=== PATIENT | male | born 1965 | race Caucasian/White ===

== ENCOUNTER 2016-06-30 11:11 | Inpatient (IN) | payer OTHER ==
[2016-06-30] MEDS ORDERED: NITROGLYCERIN OINT 1 INCH/GM PACKET TOPICAL STA (11:45)
[2016-06-30] MEDS ORDERED: ASPIRIN 81 MG CHEW PO STA (11:45)
--- NOTE | 2016-06-30 11:48 | ED ---
General Adult HPI - General Chief complaint: Chest Pain Stated complaint: CHEST PAIN Time Seen by Provider: 06/30/16 11:16 Source: patient, family, RN notes reviewed Mode of arrival: wheelchair Limitations: no limitations - History of Present Illness Initial comments: Patient is a pleasant 51-year-old male presenting to the emergency Department with chest discomfort. Symptoms have been intermittent over the past 3-4 days. Symptoms are exertional. Discomfort feels like indigestion with radiation up to the neck. Patient does have some associated mild dyspnea. Patient did have one episode of nausea and vomiting and sweating a couple of days ago. Patient recently had a trip to [place]. Symptoms started prior to coming home. Patient is currently symptom-free at this time. No history of similar symptoms previously. - Related Data Home Medications Medication Instructions Recorded Confirmed Hydrochlorothiazide [Hydrodiuril] 25 mg PO DAILY 06/30/16 06/30/16 Losartan [Cozaar] 12.5 mg PO DAILY 06/30/16 06/30/16 Allergies Allergy/AdvReac Type Severity Reaction Status Date / Time Antihistamines - Alkylamine AdvReac Unknown Verified 06/30/16 12:02 ibuprofen [From Motrin] AdvReac Nausea Verified 06/30/16 12:03 Review of Systems ROS Statement: Those systems with pertinent positive or pertinent negative responses have been documented in the HPI. ROS Other: All systems not noted in ROS Statement are negative. Constitutional: Denies: fever Eyes: Denies: eye pain ENT: Denies: ear pain Respiratory: Reports: dyspnea Cardiovascular: Reports: chest pain Endocrine: Reports: fatigue Gastrointestinal: Denies: abdominal pain Genitourinary: Denies: dysuria Musculoskeletal: Denies: back pain Skin: Denies: rash Past Medical History Past Medical History: Hypertension History of Any Multi-Drug Resistant Organisms: None Reported Additional Past Surgical History / Comment(s): THYROID, FACIAL, PILONODIAL CYST , SHOULDER Past Psychological History: No Psychological Hx Reported Smoking Status: Current every day smoker Past Alcohol Use History: Occasional Past Drug Use History: None Reported General Exam Limitations: no limitations General appearance: alert, in no apparent distress Head exam: Present: atraumatic Eye exam: Present: normal appearance, PERRL ENT exam: Present: normal oropharynx Neck exam: Present: normal inspection Respiratory exam: Present: normal lung sounds bilaterally. Absent: chest wall tenderness Cardiovascular Exam: Present: regular rate, normal rhythm Expanded Peripheral pulses: 2+: Radial (R), Radial (L), Dorsalis Pedis (R), Dorsalis Pedis (L) GI/Abdominal exam: Present: soft. Absent: tenderness Extremities exam: Present: normal inspection. Absent: pedal edema, calf tenderness Neurological exam: Present: alert Psychiatric exam: Present: normal affect, normal mood Skin exam: Absent: rash Course Vital Signs 06/30/16 06/30/16 06/30/16 11:15 11:54 12:53 Temperature 97.4 F L Pulse Rate 77 73 70 Respiratory 18 18 20 Rate Blood Pressure 140/87 150/98 132/63 O2 Sat by Pulse 97 96 97 Oximetry EKG Findings - EKG Comments: EKG Findings:: Normal sinus rhythm at 74. Normal intervals. Normal axis. LVH criteria. No acute ST change. Medical Decision Making - Medical Decision Making Patient reevaluated and resting comfortably in bed. Patient and family updated on results and plan. Case discussed in detail with Dr. Shetty, who will admit for Dr. Parks. IV heparin started. Cardiology will be consult. Admission orders placed. - Lab Data Result diagrams: 06/30/16 11:30 06/30/16 11:30 Lab Results 06/30/16 06/30/16 06/30/16 Range/Units 11:30 11:30 11:30 WBC 5.9 (3.8-10.6) k/uL RBC 6.28 H (4.30-5.90) m/uL Hgb 18.7 H (13.0-17.5) gm/dL Hct 58.4 H (39.0-53.0) % MCV 92.9 (80.0-100.0) fL MCH 29.8 (25.0-35.0) pg MCHC 32.1 (31.0-37.0) g/dL RDW 13.3 (11.5-15.5) % Plt Count 210 (150-450) k/uL Neutrophils % 68 % Lymphocytes % 22 % Monocytes % 5 % Eosinophils % 3 % Basophils % 1 % Neutrophils # 4.0 (1.3-7.7) k/uL Lymphocytes # 1.3 (1.0-4.8) k/uL Monocytes # 0.3 (0-1.0) k/uL Eosinophils # 0.2 (0-0.7) k/uL Basophils # 0.1 (0-0.2) k/uL PT (9.0-12.0) sec INR (<1.1) APTT (22.0-30.0) sec D-Dimer (<0.60) mg/L FEU Sodium 138 (137-145) mmol/L Potassium 4.9 (3.5-5.1) mmol/L Chloride 102 (98-107) mmol/L Carbon Dioxide 24 (22-30) mmol/L Anion Gap 12 mmol/L BUN 20 (9-20) mg/dL Creatinine 1.04 (0.66-1.25) mg/dL Est GFR (MDRD) Af Amer >60 (>60 ml/min/1.73 sqM) Est GFR (MDRD) Non-Af >60 (>60 ml/min/1.73 sqM) Glucose 94 (74-99) mg/dL Calcium 9.5 (8.4-10.2) mg/dL Magnesium 2.0 (1.6-2.3) mg/dL Total Bilirubin 1.7 H (0.2-1.3) mg/dL AST 38 (17-59) U/L ALT 24 (21-72) U/L Alkaline Phosphatase 56 (38-126) U/L Total Creatine Kinase 117 (55-170) U/L CK-MB (CK-2) 4.1 H* (0.0-2.4) ng/mL CK-MB (CK-2) Rel Index 3.5 Troponin I 0.365 H* (0.000-0.034) ng/mL NT-Pro-B Natriuret Pep pg/mL Total Protein 7.6 (6.3-8.2) g/dL Albumin 4.4 (3.5-5.0) g/dL 06/30/16 06/30/16 Range/Units 11:30 11:30 WBC (3.8-10.6) k/uL RBC (4.30-5.90) m/uL Hgb (13.0-17.5) gm/dL Hct (39.0-53.0) % MCV (80.0-100.0) fL MCH (25.0-35.0) pg MCHC (31.0-37.0) g/dL RDW (11.5-15.5) % Plt Count (150-450) k/uL Neutrophils % % Lymphocytes % % Monocytes % % Eosinophils % % Basophils % % Neutrophils # (1.3-7.7) k/uL Lymphocytes # (1.0-4.8) k/uL Monocytes # (0-1.0) k/uL Eosinophils # (0-0.7) k/uL Basophils # (0-0.2) k/uL PT 11.9 (9.0-12.0) sec INR 1.2 (<1.1) APTT 28.2 (22.0-30.0) sec D-Dimer <0.17 (<0.60) mg/L FEU Sodium (137-145) mmol/L Potassium (3.5-5.1) mmol/L Chloride (98-107) mmol/L Carbon Dioxide (22-30) mmol/L Anion Gap mmol/L BUN (9-20) mg/dL Creatinine (0.66-1.25) mg/dL Est GFR (MDRD) Af Amer (>60 ml/min/1.73 sqM) Est GFR (MDRD) Non-Af (>60 ml/min/1.73 sqM) Glucose (74-99) mg/dL Calcium (8.4-10.2) mg/dL Magnesium (1.6-2.3) mg/dL Total Bilirubin (0.2-1.3) mg/dL AST (17-59) U/L ALT (21-72) U/L Alkaline Phosphatase (38-126) U/L Total Creatine Kinase (55-170) U/L CK-MB (CK-2) (0.0-2.4) ng/mL CK-MB (CK-2) Rel Index Troponin I (0.000-0.034) ng/mL NT-Pro-B Natriuret Pep 220 pg/mL Total Protein (6.3-8.2) g/dL Albumin (3.5-5.0) g/dL - Radiology Data Radiology results: image reviewed (Chest x-ray shows no acute process.) Critical Care Time Critical Care Time: Yes Total Critical Care Time: 34 Disposition Clinical Impression: NSTEMI (non-ST elevated myocardial infarction) Disposition: ADMITTED IP TO THIS HOSP Condition: Serious
[2016-06-30 12:02] LABS: Basophils # (A) 0.1 k/uL (0-0.2); Basophils % (A) 1 %; CH 30.3; CHCM 32.8; Eosinophils # (A) 0.2 k/uL (0-0.7); Eosinophils % (A) 3 %; HCT 58.4 % (39.0-53.0); HDW 2.61; HGB 18.7 gm/dL (13.0-17.5); Luc # (Auto) 0.09; Luc % (Auto) 1; Lymphocytes # (A) 1.3 k/uL (1.0-4.8); Lymphocytes % (A) 22 %; MCH 29.8 pg (25.0-35.0); MCHC 32.1 g/dL (31.0-37.0); MCV 92.9 fL (80.0-100.0); Mean Platelet Volume 7.4; Monocytes # (A) 0.3 k/uL (0-1.0); Monocytes % (A) 5 %; Neutrophils % (A) 68 %; RBC 6.28 m/uL (4.30-5.90); RDW 13.3 % (11.5-15.5); WBC 5.9 k/uL (3.8-10.6); WBC (Perox) 5.71
[2016-06-30 12:16] LABS: Anion Gap 12 mmol/L; Calcium 9.5 mg/dL (8.4-10.2); Carbon Dioxide 24 mmol/L (22-30); Chloride 102 mmol/L (98-107); Glucose 94 mg/dL (74-99); Non-African American GFR(MDRD) >60 (>60 ml/min/1.73 sqM); Sodium 138 mmol/L (137-145); Total Bilirubin 1.7 mg/dL (0.2-1.3); Total Protein 7.6 g/dL (6.3-8.2)
[2016-06-30 12:25] LABS: INR 1.2 (<1.1); Partial Thromboplastin Time 28.2 sec (22.0-30.0); Prothrombin Time 11.9 sec (9.0-12.0)
[2016-06-30 12:33] LABS: ALT 24 U/L (21-72); AST 38 U/L (17-59); Alkaline Phosphatase 56 U/L (38-126); Blood Urea Nitrogen 20 mg/dL (9-20); Potassium 4.9 mmol/L (3.5-5.1)
--- NOTE | 2016-06-30 12:41 | XR ---
EXAMINATION TYPE: XR chest 2V DATE OF EXAM: 06/30/2016 12:15 PM COMPARISON: NONE INDICATION: Chest pain TECHNIQUE: Single frontal view of the chest is obtained. FINDINGS: The heart size is normal. The pulmonary vasculature is normal. The lungs are clear. IMPRESSION: 1. No acute pulmonary process.
[2016-06-30 12:52] LABS: Creatine Kinase MB 4.1 ng/mL (0.0-2.4); Troponin I 0.365 ng/mL (0.000-0.034)
[2016-06-30] MEDS ORDERED: HEPARIN SODIUM,PORCINE 5,000 UNIT/ML 1 ML VIAL IV PRN (12:53)
[2016-06-30] MEDS ORDERED: HEPARIN SODIUM,PORCINE 5,000 UNIT/ML 1 ML VIAL IV ONE (12:53)
[2016-06-30] MEDS ORDERED: HEPARIN SODIUM,PORCINE/D5W PMX 25,000 UNIT in DEXTROSE/WATER 1 500ML.BAG IV SCH (13:00)
[2016-06-30] MEDS ORDERED: SODIUM CHLORIDE 0.9% 1,000 ML IV STA (13:23)
[2016-06-30] MEDS ORDERED: NITROGLYCERIN SL TABS 0.4 MG TAB SUBLINGUAL PRN (13:31)
[2016-06-30] MEDS: NITROGLYCERIN OINT 1 INCH/GM PACKET TOPICAL SCH (18:17)
[2016-06-30 19:47] LABS: Creatine Kinase MB 3.9 ng/mL (0.0-2.4); Troponin I 0.633 ng/mL (0.000-0.034)
[2016-07-01] MEDS: NITROGLYCERIN OINT 1 INCH/GM PACKET TOPICAL SCH ×4 (00:15→17:12)
[2016-07-01 00:46] LABS: Creatine Kinase MB 2.4 ng/mL (0.0-2.4)
[2016-07-01 01:01] LABS: Troponin I 0.536 ng/mL (0.000-0.034)
[2016-07-01 03:26] LABS: Basophils % (A) 1 %; CH 30.3; Eosinophils # (A) 0.4 k/uL (0-0.7); Eosinophils % (A) 4 %; HCT 56.8 % (39.0-53.0); HDW 2.58; HGB 17.8 gm/dL (13.0-17.5); Luc # (Auto) 0.16; Luc % (Auto) 2; Lymphocytes # (A) 2.5 k/uL (1.0-4.8); Lymphocytes % (A) 28 %; MCH 29.7 pg (25.0-35.0); MCHC 31.3 g/dL (31.0-37.0); Mean Platelet Volume 7.1; Monocytes # (A) 0.4 k/uL (0-1.0); Monocytes % (A) 5 %; Neutrophils # (A) 5.4 k/uL (1.3-7.7); Neutrophils % (A) 61 %; RBC 5.98 m/uL (4.30-5.90); RDW 13.3 % (11.5-15.5); WBC 8.9 k/uL (3.8-10.6); WBC (Perox) 9.04
[2016-07-01 03:37] LABS: Cholesterol 139 mg/dL (<200); HDL Cholesterol 52 mg/dL (40-60); Triglycerides 109 mg/dL (<150)
[2016-07-01] MEDS ORDERED: ATORVASTATIN 80 MG TAB PO STA ×2 (07:48→09:13)
--- NOTE | 2016-07-01 08:01 | P.CRDCN ---
History of Present Illness Consult date: 07/01/16 Requesting physician: Rox Gutierrez Consult reason: chest pain Chief complaint: Chest pain History of present illness: This is a 51-year-old gentleman with history of hypertension, nicotine dependence in the form of chewing tobacco, he follows with Dr. 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 He presents to the hospital with symptoms of midsternal chest pressure and heaviness with radiation to the jaw. Patient has just returned recently from a vacation in [place], he states that while he was there he was having episodes of similar discomfort which he initially thought to be heartburn. He states that he would drink Pepsi, belching the symptoms would subside, he then needed to go to antacids to get relief of symptoms. The patient states he was limiting his activity because when he would do anything of minimal exertion symptoms would return. He presents to the hospital on this occasion with similar symptoms. His initial EKG on presentation here shows a normal sinus rhythm with nonspecific ST-T wave changes in the inferior leads, subsequent EKG performed at 3:00 in the morning shows T-wave inversion in the inferior lateral leads with minimal ST-T wave changes in the anterior leads. Patient started complaining again of chest pressure and heaviness this morning, repeat EKG shows normal sinus rhythm with anterior ST elevation and inferior lateral T- wave inversion, patient was given sublingual nitroglycerin with relief of symptoms. At the time of my examination this morning he complains of a headache. Troponins 0.3, 0.6, 0.5. BNP level CCXX, potassium 4.9, BUN 20, creatinine 1.0. Magnesium level is 2.0. D-dimer negative at 0.17. Hemoglobin 17.8 platelet count 200. Cholesterol 139, LDL 65, HDL 52, and triglycerides 109. Blood pressure on arrival here 140/87 with a heart rate in the 70s. The pressure this morning 120/60 with a heart rate in the 70s. Past Medical History Past Medical History: Hypertension Additional Past Medical History / Comment(s): kidney stones,"i have thick blood ,sometimes that have to take blood from me at least once a year" History of Any Multi-Drug Resistant Organisms: None Reported Additional Past Surgical History / Comment(s): paraTHYROID, FACIAL reconstruction nose, eye socket d/t accident, PILONODIAL CYSTs x 5, lt SHOULDER reconstruction Past Anesthesia/Blood Transfusion Reactions: No Reported Reaction Past Psychological History: No Psychological Hx Reported Additional Psychological History / Comment(s): pt lives at home with is and 5 kids in a 3 level home(walk out basement. 1 dog, 2 outdorr cats. no mitlitay service in background. 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 Smoking Status: Never smoker Past Alcohol Use History: Occasional Additional Past Alcohol Use History / Comment(s): chews tobacco Past Drug Use History: None Reported - Past Family History Father History Unknown: Yes Medications and Allergies Home Medications Medication Instructions Recorded Confirmed Type Hydrochlorothiazide [Hydrodiuril] 25 mg PO DAILY 06/30/16 06/30/16 History Losartan [Cozaar] 12.5 mg PO DAILY 06/30/16 06/30/16 History Allergies Allergy/AdvReac Type Severity Reaction Status Date / Time Antihistamines - Alkylamine AdvReac Unknown Verified 06/30/16 12:02 ibuprofen [From Motrin] AdvReac Nausea Verified 06/30/16 12:03 Physical Exam Vitals: Vital Signs Temp Pulse Pulse Resp BP BP Pulse Ox 07/01/16 04:00 96.8 F L 70 18 121/63 95 07/01/16 00:00 97.5 F L 61 18 128/55 98 06/30/16 20:00 98.2 F 70 18 130/65 97 06/30/16 17:02 96.8 F L 102 H 18 127/73 94 L 06/30/16 15:54 73 20 126/64 98 06/30/16 15:00 69 20 135/68 96 06/30/16 14:00 65 20 137/56 99 Intake and Output 06/30/16 07/01/16 07/01/16 22:59 06:59 14:59 Intake Total 153.667 196.24 Output Total 1000 Balance 153.667 -803.76 Intake: Intake, IV Titration 153.667 196.24 Amount Heparin Sodium,Porcine/ 153.667 196.24 D5w Pmx 25,000 unit In Dextrose/Water 1 500ml. bag @ 8.819 UNITS/KG/HR 20 mls/hr IV .Q24H ARIK Rx #:[id number] Oral 0 Output: Urine 1000 Other: # Voids 1 1 Weight 112 kg PHYSICAL EXAMINATION: HEENT: Head is atraumatic, normocephalic. Pupils equal, round. Neck is supple. There is no elevated jugular venous pressure. HEART EXAMINATION: Heart S1, S2 normal. No murmur or gallop heard. CHEST EXAMINATION: Lungs are clear to auscultation and precussion. No chest wall tenderness is noted on palpation or with deep breathing. ABDOMEN: Soft, nontender. Bowel sounds are heard. No organomegaly noted. EXTREMITIES: 2+ peripheral pulses with no evidence of peripheral edema and no calf tenderness noted. NEUROLOGIC patient is awake, alert and oriented -3. . Results 07/01/16 03:02 06/30/16 11:30 Cardiac Enzymes 06/30/16 06/30/16 Range/Units 18:56 23:47 CK-MB (CK-2) 3.9 H* 2.4 (0.0-2.4) ng/mL Troponin I 0.633 H* 0.536 H* (0.000-0.034) ng/mL Coagulation 06/30/16 07/01/16 Range/Units 20:10 03:02 APTT 27.3 32.1 H (22.0-30.0) sec Lipids 07/01/16 Range/Units 03:02 Triglycerides 109 (<150) mg/dL Cholesterol 139 (<200) mg/dL HDL Cholesterol 52 (40-60) mg/dL CBC 07/01/16 Range/Units 03:02 WBC 8.9 (3.8-10.6) k/uL RBC 5.98 H (4.30-5.90) m/uL Hgb 17.8 H (13.0-17.5) gm/dL Hct 56.8 H (39.0-53.0) % Plt Count 200 (150-450) k/uL Current Medications Generic Name Dose Route Start Last Admin Trade Name Freq PRN Reason Stop Dose Admin Aspirin 325 mg 07/01/16 09:00 07/01/16 07:52 Aspirin PO 325 mg DAILY ARIK Administration Heparin Sodium (Porcine) 0 unit 06/30/16 12:53 Heparin IV PER PROTOCOL PRN Low PTT Protocol Heparin Sodium/Dextrose 25,000 500 mls @ 20 mls/hr 06/30/16 13:00 07/01/16 04 :21 unit/ IV Solution IV 14.8 units/kg/hr .Q24H ARIK 33.56 mls/hr Protocol Titration 8.819 UNITS/KG/HR Sodium Chloride 1,000 mls @ 20 mls/hr 06/30/16 13:23 06/30/16 13:20 Saline 0.9% IV 07/01/16 13:22 20 mls/hr .Q24H STA Administration Nitroglycerin 1 inch 06/30/16 18:00 07/01/16 06:55 Nitro-Bid Oint TOPICAL 1 inch Q6HR ARIK Administration Nitroglycerin 0.4 mg 06/30/16 13:31 07/01/16 07:28 Nitrostat SUBLINGUAL 0.4 mg Q5M PRN Administration Chest Pain Sodium Chloride 10 ml 06/30/16 21:00 07/01/16 06:55 Saline Flush IV 10 ml BID ARIK Administration Intake and Output 06/30/16 07/01/16 07/01/16 22:59 06:59 14:59 Intake Total 153.667 196.24 Output Total 1000 Balance 153.667 -803.76 Intake: Intake, IV Titration 153.667 196.24 Amount Heparin Sodium,Porcine/ 153.667 196.24 D5w Pmx 25,000 unit In Dextrose/Water 1 500ml. bag @ 8.819 UNITS/KG/HR 20 mls/hr IV .Q24H ARIK Rx #:[id number] Oral 0 Output: Urine 1000 Other: # Voids 1 1 Weight 112 kg 07/01/16 03:02 EKG Interpretations (text) EKG shows normal sinus rhythm with anterior ST-T wave changes in inferior lateral T-wave inversion. Assessment and Plan Plan: Assessment and plan #1 non-ST elevation myocardial infarction #2 hypertension #3 nicotine dependence in the form of chewing tobacco Plan We will obtain a stat echocardiogram with Doppler study. Give the patient an aspirin along with Lipitor 80 now. Continue IV heparin. Patient has been advised that he may need to undergo cardiac catheterization for more definitive diagnosis. The risks and the benefits were explained to the patient in detail and he is willing to proceed. Further recommendations will follow. DNP note has been reviewed, I agree with a documented findings and plan of care. Patient was seen and examined.
[2016-07-01] MEDS ORDERED: ASPIRIN 325 MG TAB PO SCH (09:00)
[2016-07-01] MEDS ORDERED: SODIUM CHLORIDE 0.9% 1,000 ML in EMPTY BAG 1 BAG IV ONE (09:13)
[2016-07-01] MEDS ORDERED: ASPIRIN 325 MG TAB PO STA (09:13)
[2016-07-01] MEDS ORDERED: ALPRAZolam 0.25 MG TAB PO PRN (09:13)
[2016-07-01] MEDS ORDERED: ALPRAZolam 0.5 MG TAB PO PRN (09:13)
[2016-07-01] MEDS ORDERED: NITROGLYCERIN SL TABS 0.4 MG TAB SUBLINGUAL PRN (09:13)
[2016-07-01] MEDS ORDERED: IV FLUID CONTINUATION 1,000 ML IV ONE (10:12)
[2016-07-01] MEDS ORDERED: LIDOCAINE 2% INJ 20 MG/ML (20 ML MDV) ONE (10:21)
[2016-07-01] MEDS ORDERED: HEPARIN SODIUM 1,000 UNIT/ML VIAL ONE (10:23)
[2016-07-01] MEDS ORDERED: VERAPAMIL 2.5 MG/ML 2 ML AMP ONE (10:23)
[2016-07-01] MEDS ORDERED: MIDAZOLAM 2 MG/2 ML VIAL ONE (10:23)
[2016-07-01] MEDS ORDERED: diphenhydrAMINE 50 MG/ML 1 ML VIAL ONE (10:23)
[2016-07-01] MEDS ORDERED: MIDAZOLAM 2 MG/2 ML VIAL IV ONE (10:52)
[2016-07-01] MEDS ORDERED: diphenhydrAMINE 50 MG/ML 1 ML VIAL IVP ONE (10:53)
[2016-07-01] MEDS ORDERED: LIDOCAINE 2% INJ 20 MG/ML SQ ONE (10:56)
[2016-07-01] MEDS: VERAPAMIL SYRINGE (5 MG/10 ML) IV ONE ×2 (10:57→11:55)
[2016-07-01] MEDS ORDERED: HEPARIN SODIUM 1,000 UNIT/ML VIAL IV ONE (10:58)
[2016-07-01] MEDS ORDERED: BIVALIRUDIN BOLUS 250 MG/50 ML IV ONE (11:15)
[2016-07-01] MEDS ORDERED: BIVALIRUDIN 250 MG in SODIUM CHLORIDE 0.9% 50 ML IV ONE (11:16)
--- NOTE | 2016-07-01 11:19 | ECHOF ---
Referral Reason:nstemi MEASUREMENTS -------- HEIGHT: 182.9 cm WEIGHT: 111.6 kg BP: 124/75 IVSd: 1.4 cm (0.6 - 1.1) LVIDd: 3.5 cm (3.9 - 5.3) LVPWd: 1.6 cm (0.6 - 1.1) IVSs: 1.8 cm LVIDs: 1.9 cm LVPWs: 2.0 cm Ao Diam: 3.1 cm (2.0 - 3.7) AV Cusp: 2.3 cm (1.5 - 2.6) LA Diam: 3.1 cm (2.7 - 3.8) MV EXCURSION: 15.618 mm (> 18.000) MV EF SLOPE: 79 mm/s (70 - 150) EPSS: 0.4 cm MV E Aditya: 0.47 m/s MV DecT: 275 ms MV A Aditya: 0.73 m/s MV E/A Ratio: 0.64 RAP: 5.00 mmHg FINDINGS -------- Sinus rhythm. This was a technically difficult study with suboptimal views. There is moderate concentric left ventricular hypertrophy. Overall left ventricular systolic function is normal with, an EF between 55 - 60 %. The right ventricle is normal in size and function. The left atrium is normal in size. The right atrium is normal in size. 1.5mg of Definity was utilized for enhancement of images The aortic valve is trileaflet, and appears structurally normal. No aortic stenosis or regurgitation. There is trace mitral regurgitation. Trace tricuspid regurgitation present. The right ventricular systolic pressure, as measured by Doppler, is {RVSP}. Pulmonic valve appears structurally normal. The aortic root size is normal. The pericardium is normal. CONCLUSIONS -------- 1. Sinus rhythm. 2. There is trace mitral regurgitation. 3. Trace tricuspid regurgitation present. 4. The right ventricular systolic pressure, as measured by Doppler, is {RVSP}. 5. Pulmonic valve appears structurally normal. 6. The aortic root size is normal. 7. The pericardium is normal. 8. This was a technically difficult study with suboptimal views. 9. There is moderate concentric left ventricular hypertrophy. 10. Overall left ventricular systolic function is normal with, an EF between 55 - 60 %. 11. The right ventricle is normal in size and function. 12. The left atrium is normal in size. 13. The right atrium is normal in size. 14. 1.5mg of Definity was utilized for enhancement of images 15. The aortic valve is trileaflet, and appears structurally normal. No aortic stenosis or regurgitation. FREEZER UNLOADER: Tori Vargas RDCS
[2016-07-01] MEDS ORDERED: NITROGLYCERIN 1000MCG/10ML SYRINGE INTRACORON ONE (11:32)
[2016-07-01] MEDS ORDERED: IOHEXOL 350 MG/ML 100 ML BOTTLE INJ ONE (11:42)
[2016-07-01] MEDS ORDERED: CLOPIDOGREL 75 MG TAB ONE (11:53)
[2016-07-01] MEDS ORDERED: CLOPIDOGREL 75 MG TAB PO ONE (11:58)
[2016-07-01] MEDS ORDERED: RX INFO: IV CONTRAST WAS GIVEN 1 EACH MISC MISCELLANE PRN (12:04)
[2016-07-01] MEDS ORDERED: LOSARTAN-HCTZ 50-12.5 MG 1 EACH TAB PO SCH (12:15)
[2016-07-01] MEDS: METOPROLOL TARTRATE 12.5 MG TAB PO SCH (13:16)
[2016-07-01] MEDS: SODIUM CHLORIDE 0.9% 1,000 ML IV SCH (13:19)
--- NOTE | 2016-07-01 13:44 | P.HPIM ---
History of Present Illness H&P Date: 07/01/16 Chief Complaint: chest pain Patient is a 51-year-old male who presented to [facility] emergency room with a chief complaint of chest pain patient describes a pressure sensation in the middle of his chest radiating up to the jaw, he states that he was recently on a vacation in [place] he was having similar episodes he thought were related to acid reflux he was drinking Pepsi and taking antacid to get some relief, patient was evaluated in the emergency room his first EKG revealed nonspecific ST and T wave changes in the inferior leads subsequence EKG revealed T wave inversion in anterior leads troponin were elevated. Patient was admitted to telemetry floor he was started on IV heparin cardiology consultation was requested. Past Medical History Past Medical History: Hypertension Additional Past Medical History / Comment(s): kidney stones,"i have thick blood ,sometimes that have to take blood from me at least once a year" History of Any Multi-Drug Resistant Organisms: None Reported Additional Past Surgical History / Comment(s): paraTHYROID, FACIAL reconstruction nose, eye socket d/t accident, PILONODIAL CYSTs x 5, lt SHOULDER reconstruction Past Anesthesia/Blood Transfusion Reactions: No Reported Reaction Past Psychological History: No Psychological Hx Reported Additional Psychological History / Comment(s): pt lives at home with is and 5 kids in a 3 level home(walk out basement. 1 dog, 2 outdorr cats. no mitlitay service in background. 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 Smoking Status: Never smoker Past Alcohol Use History: Occasional Additional Past Alcohol Use History / Comment(s): chews tobacco Past Drug Use History: None Reported - Past Family History Father History Unknown: Yes Medications and Allergies Home Medications Medication Instructions Recorded Confirmed Type Hydrochlorothiazide [Hydrodiuril] 25 mg PO DAILY 06/30/16 06/30/16 History Losartan [Cozaar] 12.5 mg PO DAILY 06/30/16 06/30/16 History Allergies Allergy/AdvReac Type Severity Reaction Status Date / Time Antihistamines - Alkylamine AdvReac Unknown Verified 06/30/16 12:02 ibuprofen [From Motrin] AdvReac Nausea Verified 06/30/16 12:03 Physical Exam Vitals: Vital Signs Temp Pulse Pulse Pulse Resp BP BP 07/01/16 12:34 65 14 164/72 07/01/16 12:19 65 14 165/84 07/01/16 12:04 84 14 153/74 07/01/16 12:00 65 16 07/01/16 09:13 97.6 F 65 16 124/74 07/01/16 08:00 96.9 F L 65 14 124/74 07/01/16 04:00 96.8 F L 70 18 121/63 07/01/16 00:00 97.5 F L 61 18 128/55 06/30/16 20:00 98.2 F 70 18 130/65 06/30/16 17:02 96.8 F L 102 H 18 127/73 06/30/16 15:54 73 20 126/64 06/30/16 15:00 69 20 135/68 06/30/16 14:00 65 20 137/56 Pulse Ox 07/01/16 12:34 95 07/01/16 12:19 96 07/01/16 12:04 96 07/01/16 12:00 07/01/16 09:13 96 07/01/16 08:00 96 07/01/16 04:00 95 07/01/16 00:00 98 06/30/16 20:00 97 06/30/16 17:02 94 L 06/30/16 15:54 98 06/30/16 15:00 96 06/30/16 14:00 99 Intake and Output 06/30/16 07/01/16 07/01/16 22:59 06:59 14:59 Intake Total 153.667 196.24 769.14 Output Total 1000 300 Balance 153.667 -803.76 469.14 Intake: IV 219.14 Intake, IV Titration 153.667 196.24 350 Amount Heparin Sodium,Porcine/ 153.667 196.24 D5w Pmx 25,000 unit In Dextrose/Water 1 500ml. bag @ 8.819 UNITS/KG/HR 20 mls/hr IV .Q24H ARIK Rx #:[id number] Sodium Chloride 0.9% 1, 350 000 ml @ 75 mls/hr IV . [id number] ARIK Rx#:[id number] Oral 0 200 Output: Urine 1000 300 Other: # Voids 1 1 1 Weight 112 kg 112 kg Patient Weight 07/02/16 06:59 Weight 112 kg In general patient is alert and oriented 3 in no apparent distress HEENT head normocephalic and atraumatic Neck is supple no JVD no goiter no lymphadenopathy Chest exam reveals a scattered crackles bilaterally no wheezing Cardiac exam reveals regular heart sounds no gallops no murmurs Abdomen is soft nontender no organomegaly Extremity exam reveals no edema no cyanosis or clubbing Results CBC & Chem 7: 07/01/16 03:02 06/30/16 11:30 Labs: Abnormal Lab Results - Last 24 Hours (Table) 06/30/16 06/30/16 07/01/16 Range/Units 18:56 23:47 03:02 RBC 5.98 H (4.30-5.90) m/uL Hgb 17.8 H (13.0-17.5) gm/dL Hct 56.8 H (39.0-53.0) % APTT (22.0-30.0) sec CK-MB (CK-2) 3.9 H* (0.0-2.4) ng/mL Troponin I 0.633 H* 0.536 H* (0.000-0.034) ng/mL 07/01/16 07/01/16 Range/Units 03:02 09:57 RBC (4.30-5.90) m/uL Hgb (13.0-17.5) gm/dL Hct (39.0-53.0) % APTT 32.1 H 35.4 H (22.0-30.0) sec CK-MB (CK-2) (0.0-2.4) ng/mL Troponin I (0.000-0.034) ng/mL Thrombosis Risk Factor Assmnt - Choose All That Apply Any of the Below Risk Factors Present?: Yes Each Factor Represents 1 point: Acute AL, Age 41-60 years, Obesity (BMI >25) Other Risk Factors: No Other congenital or acquired thrombophilia - If yes, enter type in comment: No Thrombosis Risk Factor Assessment Total Risk Factor Score: 3 Thrombosis Risk Factor Assessment Level: Moderate Risk Assessment and Plan Plan: #1 non-ST elevation myocardial infarction #2 underlying history of hypertension #3 underlying history of hyperlipidemia #4 elevated hemoglobin and hematocrit Will consult hematology rule out polycythemia vera #5 visual disturbance patient states that he had a blood clot in his eye when he was 17 years old he started having some visual disturbance today Will consult. Ophthalmology for evaluation Will follow closely during this admission for medical management
[2016-07-01] MEDS: LOSARTAN-HCTZ 50-12.5 MG 1 EACH TAB PO SCH (23:02)
[2016-07-02 05:56] VITALS: RESP 18
[2016-07-02 06:47] LABS: Basophils % (A) 0 %; CHCM 32.4; Eosinophils # (A) 0.3 k/uL (0-0.7); Eosinophils % (A) 4 %; HCT 54.1 % (39.0-53.0); HDW 2.59; HGB 17.5 gm/dL (13.0-17.5); Luc # (Auto) 0.15; Luc % (Auto) 2; Lymphocytes # (A) 1.7 k/uL (1.0-4.8); Lymphocytes % (A) 25 %; MCH 30.1 pg (25.0-35.0); MCHC 32.3 g/dL (31.0-37.0); Mean Platelet Volume 7.2; Monocytes # (A) 0.4 k/uL (0-1.0); Monocytes % (A) 6 %; Neutrophils # (A) 4.3 k/uL (1.3-7.7); Neutrophils % (A) 63 %; RBC 5.82 m/uL (4.30-5.90); RDW 13.5 % (11.5-15.5); WBC 6.8 k/uL (3.8-10.6); WBC (Perox) 7.03
[2016-07-02 07:00] LABS: ALT 31 U/L (21-72); AST 23 U/L (17-59); Alkaline Phosphatase 57 U/L (38-126); Anion Gap 10 mmol/L; Blood Urea Nitrogen 17 mg/dL (9-20); Calcium 9.1 mg/dL (8.4-10.2); Carbon Dioxide 28 mmol/L (22-30); Chloride 102 mmol/L (98-107); Glucose 94 mg/dL (74-99); Non-African American GFR(MDRD) >60 (>60 ml/min/1.73 sqM); Potassium 4.4 mmol/L (3.5-5.1); Sodium 140 mmol/L (137-145); Total Protein 6.7 g/dL (6.3-8.2)
[2016-07-02] MEDS: NITROGLYCERIN OINT 1 INCH/GM PACKET TOPICAL SCH ×3 (08:15→11:46)
[2016-07-02] MEDS: SODIUM CHLORIDE 0.9% 1,000 ML IV SCH ×2 (08:16→11:47)
[2016-07-02] MEDS: CLOPIDOGREL 75 MG TAB PO SCH (08:20)
[2016-07-02] MEDS: ASPIRIN 81 MG CHEW PO SCH (08:20)
[2016-07-02] MEDS: ATORVASTATIN 80 MG TAB PO SCH (08:21)
[2016-07-02] MEDS: METOPROLOL TARTRATE 12.5 MG TAB PO SCH (11:46)
--- NOTE | 2016-07-02 15:14 | P.PN ---
Subjective Principal diagnosis: Non-STEMI This is a 51-year-old gentleman with history of hypertension, nicotine dependence in the form of chewing tobacco, who presented to the hospital with a non-ST elevation myocardial infarction. He was taken to the cardiac catheterization lab yesterday by Dr. Dima Serrano where he underwent angioplasty with stenting of the circumflex artery. Through the night last night patient was noted to have 3-[address] Dima Serrano did have a lengthy discussion with the patient on the possibility of sleep apnea. He was on a small dose of beta clinton at 12-1/2 mg which was discontinued today. We have also requested Dr. Rivera to see the patient in consultation for polycythemia. We will also recommend to Dr. Florez possible consultation with pulmonary regarding sleep apnea. Echocardiogram with Doppler study was performed which revealed an ejection fraction of 55-60%. Patient has been extracted today to be up ambulating in the hallway. Plan for possible discharge home in the morning if stable. Objective - Vital Signs Vital signs: Vital Signs Temp 97.8 F 07/02/16 14:48 Pulse 69 07/02/16 14:48 Resp 18 07/02/16 14:48 BP 147/87 07/02/16 14:48 Pulse Ox 95 07/02/16 14:48 Intake & Output 07/01/16 07/02/16 07/02/16 18:59 06:59 18:59 Intake Total 769.14 600 Output Total 1300 1500 Balance -530.86 -1500 600 Weight 112 kg 113.9 kg Intake: IV 219.14 Intake, IV Titration 350 Amount Sodium Chloride 0.9% 1, 350 000 ml @ 75 mls/hr IV . [id number] [facility] Rx#:[id number] Oral 200 600 Output: Urine 1300 1500 Other: # Voids 1 2 - Exam PHYSICAL EXAMINATION: HEENT: Head is atraumatic, normocephalic. Pupils equal, round. Neck is supple. There is no elevated jugular venous pressure. HEART EXAMINATION: Heart S1, S2 normal. No murmur or gallop heard. CHEST EXAMINATION: Lungs are clear to auscultation and precussion. No chest wall tenderness is noted on palpation or with deep breathing. ABDOMEN: Soft, nontender. Bowel sounds are heard. No organomegaly noted. Right radial site clean and dry, good distal pulse. EXTREMITIES: 2+ peripheral pulses with no evidence of peripheral edema and no calf tenderness noted. NEUROLOGIC patient is awake, alert and oriented -3. . - Labs CBC & Chem 7: 07/02/16 06:12 07/02/16 06:12 Labs: Abnormal Lab Results - Last 24 Hours (Table) 07/02/16 Range/Units 06:12 Hct 54.1 H (39.0-53.0) % Assessment and Plan Plan: Assessment and plan #1 non-ST elevation myocardial infarction status post angioplasty and stenting of the circumflex #2 hypertension #3 nicotine dependence in the form of chewing tobacco #3-4 second pauses, could be secondary to sleep apnea. #4 polycythemia Plan Cardiology's perspective, we'll continue the current medications the patient is on. He's been advised to be up ambulating today. We have requested a consultation with Dr. Rivera for polycythemia. Also recommend evaluation for sleep apnea. Beta clinton has been discontinued today. Possible discharge home in 24 hours if stable. DNP note has been reviewed, I agree with a documented findings and plan of care. Patient was seen and examined.
--- NOTE | 2016-07-02 17:16 | P.PN ---
Subjective Principal diagnosis: Acute coronary syndrome Patient is a 51-year-old male who presented to [facility] with chest pain, he had elevated troponin levels and abnormal EKG, he underwent cardiac catheterization with angioplasty and stent placement to the circumflex. Today he is chest pain-free he is doing well He was noticed to have elevated hemoglobin level, awaiting hematology consult There is possible sleep apnea also pulmonary consultation has been requested. Objective - Vital Signs Vital signs: Vital Signs Temp 97.8 F 07/02/16 14:48 Pulse 69 07/02/16 14:48 Resp 18 07/02/16 14:48 BP 147/87 07/02/16 14:48 Pulse Ox 95 07/02/16 14:48 Intake & Output 07/01/16 07/02/16 07/02/16 18:59 06:59 18:59 Intake Total 769.14 600 Output Total 1300 1500 Balance -530.86 -1500 600 Weight 112 kg 113.9 kg Intake: IV 219.14 Intake, IV Titration 350 Amount Sodium Chloride 0.9% 1, 350 000 ml @ 75 mls/hr IV . [id number] Rx#:[id number] Oral 200 600 Output: Urine 1300 1500 Other: # Voids 1 2 # Bowel Movements 0 - Exam HEENT head normocephalic and atraumatic Neck is supple no JVD no goiter no lymphadenopathy Chest is clear to auscultation no wheezing Cardiac exam reveals regular heart sounds no gallops no murmurs Abdomen is soft nontender no organomegaly Extremity exam reveals no edema no cyanosis or clubbing - Labs CBC & Chem 7: 07/02/16 06:12 07/02/16 06:12 Labs: Abnormal Lab Results - Last 24 Hours (Table) 07/02/16 Range/Units 06:12 Hct 54.1 H (39.0-53.0) % Assessment and Plan Plan: #1 non-ST elevation myocardial infarction #2 underlying history of hypertension #3 underlying history of hyperlipidemia #4 elevated hemoglobin and hematocrit Will consult hematology rule out polycythemia vera #5 visual disturbance patient states that he had a blood clot in his eye when he was 17 years old he started having some visual disturbance today Will consult. Ophthalmology for evaluation #6 cardiac pauses beta clinton was discontinued continuous telemetry monitoring #7 possible sleep apnea pulmonary consultation requested Will follow closely during this admission for medical management
--- NOTE | 2016-07-02 18:16 | P.CONS ---
History of Present Illness - Reason for Consult Consult date: 07/02/16 possible polycythemia Requesting physician: Silverio Florez - Chief Complaint chest pain - History of Present Illness Pt being seen with concerns for PV with a Hgb of 17.8 and Hct of 56.8 on admission, NSTEMI. 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 He was placed on blood thinners at that time but due to age and activity levels he quit. About the last 3-5 years he was initially donating blood to the [place] but due to conflicts with his busy sched he started having phlebotomies at his PCP office, 2-3 times a year. He has never had a work up, he is not aware of anyone else in his family having blood problems, there is history of DE. He does snore, does admit that he will wake himself as times. Prior to admission pt was in his usual state of health-he is very active, works , has 4 kids. He was on vacation when he started noticing chest discomfort, related to heartburn but it persisted, was associated with some nausea, radiation to neck and SOB. He is being treated for NSTEMI at this time. Review of Systems All systems: negative Constitutional: Reports as per HPI Past Medical History Past Medical History: Hypertension Additional Past Medical History / Comment(s): kidney stones,"i have thick blood ,sometimes that have to take blood from me at least once a year" History of Any Multi-Drug Resistant Organisms: None Reported Additional Past Surgical History / Comment(s): paraTHYROID, FACIAL reconstruction nose, eye socket d/t accident, PILONODIAL CYSTs x 5, lt SHOULDER reconstruction Past Anesthesia/Blood Transfusion Reactions: No Reported Reaction Past Psychological History: No Psychological Hx Reported Additional Psychological History / Comment(s): pt lives at home with is and 5 kids in a 3 level home(walk out basement. 1 dog, 2 outdorr cats. no [employer] service in background. works as [employer]. Smoking Status: Never smoker Past Alcohol Use History: Occasional Additional Past Alcohol Use History / Comment(s): chews tobacco, occasional cigar Past Drug Use History: None Reported - Past Family History Father History Unknown: Yes Additional Family Medical History / Comment(s): grandmother [place] Medications and Allergies Home Medications Medication Instructions Recorded Confirmed Type Hydrochlorothiazide [Hydrodiuril] 25 mg PO DAILY 06/30/16 06/30/16 History Losartan [Cozaar] 12.5 mg PO DAILY 06/30/16 06/30/16 History Allergies Allergy/AdvReac Type Severity Reaction Status Date / Time Antihistamines - Alkylamine AdvReac Unknown Verified 06/30/16 12:02 ibuprofen [From Motrin] AdvReac Nausea Verified 06/30/16 12:03 Physical Exam Vitals: Vital Signs Temp Pulse Resp BP Pulse Ox 07/02/16 14:48 97.8 F 60 16 147/87 95 07/02/16 12:00 97.6 F 61 16 140/89 96 07/02/16 08:26 98.3 F 69 16 143/76 97 07/02/16 04:00 96.5 F L 67 18 126/61 07/02/16 00:00 97.1 F L 68 16 153/86 95 07/01/16 20:00 97.2 F L 69 16 158/90 96 Intake and Output 07/02/16 07/02/16 07/02/16 06:59 14:59 22:59 Intake Total 600 Output Total 1500 Balance -1500 600 Intake: Oral 600 Output: Urine 1500 Other: # Voids 2 # Bowel Movements 0 Weight 113.9 kg - Constitutional General appearance: average body habitus, cooperative, no acute distress - EENT Eyes: anicteric sclerae, EOMI, PERRLA, normal appearance ENT: hearing grossly normal, normal oropharynx - Neck Neck: no lymphadenopathy - Respiratory Respiratory: bilateral: CTA - Cardiovascular Rhythm: regular Heart sounds: normal: S1, S2 Abnormal Heart Sounds: no systolic murmur, no diastolic murmur, no rub, no S3 Gallop, no S4 Gallop, no click, no other leg Peripheral Edema: bilateral: None - Gastrointestinal General gastrointestinal: no absent bowel sounds, no decreased bowel sounds, no distended, no hepatomegaly, no hyperactive bowel sounds, normal bowel sounds, no organomegaly, no rigid, no scaphoid, soft, no splenomegaly, no tenderness, no umbilical hernia, no ventral hernia - Integumentary Pt is bai but his confirms a tatiana/flush complexion - Neurologic Neurologic: CNII-XII intact - Musculoskeletal Musculoskeletal: strength equal bilaterally - Psychiatric Psychiatric: A&O x's 3, appropriate affect, intact judgment & insight Results CBC & Chem 7: 07/02/16 06:12 07/02/16 06:12 Labs: Abnormal Lab Results - Last 24 Hours (Table) 07/02/16 Range/Units 06:12 Hct 54.1 H (39.0-53.0) % Comments: ECHO report reviewed Chest x-ray: report reviewed Assessment and Plan (1) Elevated hemoglobin Status: Chronic Plan: Elevated Hgb and Hct. Pt states a history of the same with phlebotomy for the last 3-5 years, denies any work up for the same. We will order lab testing to evaluate for polycythemia vera. Due to pt history did recommend sleep study to evaluate for secondary polycythemia due to sleep apnea. IN regards to NSTEMI phlebotomy is not indicated at this time. Evidence does not not show improved outcomes and there is concern that phlebotomy could increase cardiac strain. Agree with hydration and anti-platelet therapy.
[2016-07-02 19:25] LABS: Reticulocyte % 1.8 % (0.5-2.0)
--- NOTE | 2016-07-02 19:40 | CONS ---
DATE OF CONSULTATION: CHIEF COMPLAINT: Zigzag line, half a lopes in front of the right eye. HISTORY OF PRESENT ILLNESS: Patient noticed like a kaleidoscope, light appearance, wiggly, that lasted for 15 minutes yesterday. This followed his stent heart surgery. Patient denied any headache following that. Patient denied any previous history of the same problem before. 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 MEDICAL HISTORY: Reviewed. EYE EXAMINATION: Vision right eye: 20/30 reading. Left eye: Hand movement. Pupil shows left afferent pupillary defect. Extraocular motility full. Confrontation nausea. Tension applanation: 18 mmHg right eye and 17 mmHg left eye. Anterior chamber quiet and normal. Lens: One plus NS. Retina shows no hemorrhages, no tears, no vascular abnormality. Disc: Normal, right eye. ASSESSMENT: 1. Visual disturbance. 2. Ocular migraine. PLAN: I would like to see the patient next week for visual field evaluation and visual-evoked potential in the office. I will arrange to see him in one week or in 10 days.
[2016-07-02] MEDS: LOSARTAN-HCTZ 50-12.5 MG 1 EACH TAB PO SCH (23:12)
[2016-07-03 06:03] LABS: Glucose,Whole Blood 92 mg/dL (75-99)
--- NOTE | 2016-07-03 06:25 | CC ---
DATE OF SERVICE: 07/01/2016 PROCEDURE: Left heart catheterization and coronary angiography. PERFORMED BY: Dr. Sudhakar Serrano. CLINICAL INFORMATION: Mr. Lisandro Rodríguez is a 51-year-old gentleman with history of polycythemia vera and also has hypertension and probable sleep apnea syndrome. He presented with the chest pain, had a troponin elevation suggestive of [id number] IN and was advised coronary angiography. Risks, benefits, options, rationale were discussed at length with the patient. PROCEDURE NOTE: Under local anesthesia and strict aseptic precautions, a 6 Israeli introducer was placed in the right radial artery. I used an Ultimate 1 catheter, but I could not get a good selective injection. I then switched over to a JL 3 catheter. With this eventually I was able to get good pictures of the coronary artery. I used a JR 3.5 catheter to perform selective coronary angiography of the right coronary artery. I checked LV pressures but did not perform an LV gram. Following the procedure, the patient had a significant circumflex lesion and he was advised intervention that was performed expeditiously. CORONARY ANGIOGRAPHY FINDINGS: RIGHT CORONARY ARTERY: This is technically a very dominant vessel, large in caliber and distribution; proximally has a 30% to 35% narrowing after which the caliber improves. Distally, it bifurcates into 2 branches, supplies a sizable amount of myocardium. There is no significant disease in the very dominant right coronary artery other than minor irregularities and a proximal lesion of about 35%. LEFT MAIN CORONARY ARTERY: This is a very short, patent vessel that immediately bifurcates into LAD and circumflex. Left main itself is free of significant disease. LEFT ANTERIOR DESCENDING CORONARY ARTERY: There is a 40% plaque very proximally and then it gives off a good size diagonal branch and a septal branch and seems to supply a sizable amount of myocardium. The LAD system has no significant disease, distally but proximally there is about a 40% plaque noted. The origin of LAD comes more proximal than the circumflex and it was somewhat difficult to get a good picture. LEFT TO POSTERIOR CIRCUMFLEX CORONARY ARTERY: Technically a nondominant vessel yet of good caliber and distribution. Very proximal, it gives a small branch, which is like a tiny obtuse marginal and then there is an eccentric 95% stenosis after which there is a large obtuse marginal that runs laterally and another groove branch. Circumflex, therefore, is a large caliber, nondominant vessel with a 95% stenosis in the proximal portion. FINAL IMPRESSION: This patient has a dominant right coronary artery with a 35% proximal lesion. He also has a 95% circumflex lesion very proximally after a small obtuse mild branch and beyond the blockage is a large caliber, large distribution obtuse marginal. LAD has a 40% plaque proximally but no other significant disease is noted. RECOMMENDATIONS: I recommended intervention of the circumflex and proceeded to perform this in the same setting.
--- NOTE | 2016-07-03 06:31 | PTCA ---
DATE OF SERVICE: 07/01/2016 PROCEDURE: PTCA and stenting of proximal circumflex coronary artery: PERFORMED BY: Dr. Sudhakar Serrano. CLINICAL INFORMATION: Mr. Lisandro Rodríguez is a 51-year-old gentleman with history of polycythemia vera and also has hypertension and probable sleep apnea syndrome. He presented with the chest pain, had a troponin elevation suggestive of [id number] VT and was advised coronary angiography. Risks, benefits, options, rationale were discussed at length with the patient. Following coronary angiography, I noted the circumflex had a 95% stenosis and proceeded to perform intervention in the same setting. I used a XBLAD 3.0 guide catheter to cannulate the left coronary artery. A BMW wire was used to cross the lesion. A 3.0 caliber Trek 8 mm long balloon was opened and predilated. A 3.25 caliber, 12 mm long Xience stent was used and this was deployed at high pressures. I noted that there was still a lesion in the midportion, a 3.5 caliber, 12 mm long NC Euphora balloon was used and this was deployed at 13 atmospheres, which was a nominal pressure. Good angiographic result was achieved. There was still mild narrowing in the midportion of 10% or so. However, I did not want to go with any higher pressures or a larger balloon since this lesion was located at a bend. Result was still excellent with remarkably good flow. The sheath was then taken out and TR band applied as per protocol and he was sent to the room in stable condition. He received antiplatelet agent and also Angiomax bolus and drip was given as per protocol. The patient tolerated the procedure well. Results were discussed with the patient and family members. For the entire coronary angiography and intervention procedure, conscious sedation was used for a total duration of 1hour and intravenous Versed, fentanyl and Benadryl were given. Patient closely monitored.
[2016-07-03] MEDS: SODIUM CHLORIDE 0.9% 1,000 ML IV SCH (06:51)
[2016-07-03] MEDS: CLOPIDOGREL 75 MG TAB PO SCH (08:05)
[2016-07-03] MEDS: ASPIRIN 81 MG CHEW PO SCH (08:05)
[2016-07-03] MEDS: ATORVASTATIN 80 MG TAB PO SCH (08:05)
--- NOTE | 2016-07-03 12:04 | P.CNPUL ---
History of Present Illness Consult date: 07/03/16 Requesting physician: Silverio Florez Reason for consult: other (Suspected sleep apnea) Chief complaint: Chest pain History of present illness: This is a very pleasant 51-year-old gentleman who follows with Dr. Sandy Parks as his primary care physician. He has history of hypertension, polycythemia vera with previous phlebotomies, and tobacco use in the form of chew. He presented here on 06/30/2016 with complaints of chest pain and was found to have a non-ST segment elevation myocardial infarction. He had subsequently undergone cardiac catheterization and stenting of the proximal circumflex coronary artery. While here in the evenings he was noted to have some sinus pauses the longest about 4 seconds and witnessed sleep apnea. We're consulted for the same. Presently, the patient is resting quite comfortably in bed. His is at the bedside. He has no pulmonary complaints. She does admit the patient has significant snoring and periods of apnea. She also states his children are afraid to wake him because he takes such a big gasping breath. He does have disrupted sleep pattern at home. He works from 2 in the morning until 2 in the afternoon. He has several children who are active in sports and he attends most games. If there is no activities he is able to get to sleep in the evenings. He does wake up at 12:30 in the morning each night for work. He feels at best he gets approximately 6 hours of sleep per day. He does admit to daytime sleepiness but he's never fallen asleep while driving. His BMI is 32 kg. Mallampati score of III. Review of Systems 14 point review of system was conducted. All negative other than as mentioned in the HPI. Past Medical History Past Medical History: Hypertension Additional Past Medical History / Comment(s): kidney stones, polycythemia with previous phlebotomy History of Any Multi-Drug Resistant Organisms: None Reported Additional Past Surgical History / Comment(s): paraTHYROID, FACIAL reconstruction nose, eye socket d/t accident, PILONODIAL CYSTs x 5, lt SHOULDER reconstruction Past Anesthesia/Blood Transfusion Reactions: No Reported Reaction Past Psychological History: No Psychological Hx Reported Additional Psychological History / Comment(s): pt lives at home with is and 5 kids in a 3 level home(walk out basement. 1 dog, 2 outdorr cats. no [employer] service in background. works as [employer]. Smoking Status: Never smoker Past Alcohol Use History: Occasional Additional Past Alcohol Use History / Comment(s): chews tobacco, occasional cigar Past Drug Use History: None Reported - Past Family History Father History Unknown: Yes Additional Family Medical History / Comment(s): grandmother [place] Medications and Allergies Home Medications Medication Instructions Recorded Confirmed Type Hydrochlorothiazide [Hydrodiuril] 25 mg PO DAILY 06/30/16 06/30/16 History Losartan [Cozaar] 12.5 mg PO DAILY 06/30/16 06/30/16 History Allergies Allergy/AdvReac Type Severity Reaction Status Date / Time Antihistamines - Alkylamine AdvReac Unknown Verified 06/30/16 12:02 ibuprofen [From Motrin] AdvReac Nausea Verified 06/30/16 12:03 Physical Exam Vitals: Vital Signs Temp Pulse Resp BP Pulse Ox 07/03/16 08:00 97.2 F L 67 18 122/77 95 07/03/16 04:00 65 18 128/70 100 07/03/16 00:00 97.1 F L 70 18 142/82 95 07/02/16 20:00 97.0 F L 71 18 151/88 95 07/02/16 14:48 97.8 F 60 16 147/87 95 07/02/16 12:00 97.6 F 61 16 140/89 96 Intake and Output 07/02/16 07/03/16 07/03/16 22:59 06:59 14:59 Intake Total 480 960 Output Total 1000 Balance 480 -40 Intake: Oral 480 960 Output: Urine 1000 Other: # Voids 1 GENERAL EXAM: Alert, active, comfortable in no apparent distress. HEAD: Normocephalic. EYES: Normal reaction of pupils, equal size. NOSE: Clear with pink turbinates. THROAT: There is crowding of the posterior pharynx. No erythema or exudates. NECK: No masses, no JVD. CHEST: No chest wall deformity. LUNGS: Equal air entry with no crackles, wheeze, rhonchi or dullness. CVS: S1 and S2 normal with no audible murmurs, regular rhythm. ABDOMEN: No hepatosplenomegaly, normal bowel sounds, no guarding or rigidity. SPINE: No scoliosis or deformity SKIN: No rashes CENTRAL NERVOUS SYSTEM: No focal deficits, tone is normal in all 4 extremities. Extremities: There is no significant peripheral edema. No clubbing, no cyanosis. Peripheral pulses are intact. Results - Laboratory Findings CBC and BMP: 07/02/16 06:12 07/02/16 06:12 PT/INR, D-dimer PT 11.9 sec (9.0-12.0) 06/30/16 11:30 INR 1.2 (<1.1) 06/30/16 11:30 D-Dimer <0.17 mg/L FEU (<0.60) 06/30/16 11:30 Abnormal lab findings: Abnormal Labs 06/30/16 06/30/16 07/01/16 18:56 23:47 03:02 RBC 5.98 H Hgb 17.8 H Hct 56.8 H APTT CK-MB (CK-2) 3.9 H* Troponin I 0.633 H* 0.536 H* 07/01/16 07/01/16 07/02/16 03:02 09:57 06:12 RBC Hgb Hct 54.1 H APTT 32.1 H 35.4 H CK-MB (CK-2) Troponin I Assessment and Plan Plan: Impression: #1 Coronary artery disease with recent non-ST segment elevation myocardial infarction and subsequent stenting to the circumflex artery. #2 Suspected obstructive sleep apnea, witnessed apnea and up to 4 second sinus pauses while sleeping. #3 Polycythemia with previous phlebotomy. Unclear if this is a polycythemia vera or a secondary polycythemia from untreated obstructive sleep apnea. Presenting hemoglobin 17.8, hematocrit 56.8. #4 Hypertension. #5 Hyperlipidemia. Plan: The patient was seen and evaluated by Dr. Ku. His chest x-ray and labs were reviewed. We'll plan to set the patient up [facility] an outpatient sleep study to determine his apnea hypopnea index and make recommendations if significant sleep apnea is detected. The patient and his are both agreeable to the plan. Time with Patient: Greater than 30
--- NOTE | 2016-07-03 13:19 | P.DS ---
Providers Date of admission: 06/30/16 13:31 Expected date of discharge: 07/03/16 Attending physician: Rox Gutierrez Consults: 07/01/16 08:42 Consult Physician Urgent Consulting Provider: Rhett Rivera Consult Reason/Comments: polycythemia Do you want consulting provider notified?: Yes 07/01/16 13:34 Consult Physician Routine Consulting Provider: Rhett Rivera Consult Reason/Comments: ? polycytemia Do you want consulting provider notified?: Yes 07/01/16 13:44 Consult Physician Routine Consulting Provider: Stanley Borden Consult Reason/Comments: visual disturbance Do you want consulting provider notified?: Yes 07/02/16 17:06 Consult Physician Routine Consulting Provider: Henry Bird Consult Reason/Comments: possible sleep apnea Do you want consulting provider notified?: Yes Primary care physician: Sandy Parks [facility] Course: discharge diagnosis 1. Acute non-ST elevation myocardial infarction status post angioplasty and stenting of the circumflex 2.suspected obstructive sleep apnea with witnessed apnea and up to 4 seconds sinus positive for sleeping 3. Polycythemia with previous phlebotomy. possible polycythemia vera versus secondary polycythemia from untreated obstructive sleep apnea. Workup will be completed for sleep study and further hematology workup outpatient 4. Essential hypertension 5.cardiac pauses possibly related to obstructive sleep apnea. Beta clinton was discontinued. No further pauses throughout the day. Evaluated by both cardiology and pulmonary service. Patient not a candidate for any further beta blockers. He'll follow-up with pulmonary service for sleep study outpatient 6.visual disturbance and ocular migraine. Symptoms have improved. Patient will follow-up with ophthalmology in 1 week Hospital course Patient is a 51-year-old male who presented to [facility] emergency room with a chief complaint of chest pain patient describes a pressure sensation in the middle of his chest radiating up to the jaw, he states that he was recently on a vacation in [place] he was having similar episodes he thought were related to acid reflux he was drinking Pepsi and taking antacid to get some relief. First EKG had shown nonspecific ST and T- wave changes in inferior leads subsequently EKG revealed T-wave inversion in anterior leads. Troponins were also elevated. Patient was started on IV heparin and admitted to the telemetry floor. Cardiology was consulted. Patient diagnosed with an acute non-ST elevated CO. He did undergo a heart catheterization with angioplasty and stenting to the circumflex. Started on Plavix, aspirin and Lipitor. Patient's chest pain has improved. Patient did have a beta clinton added initially as well. However he was having cardiac causes. The beta clinton was discontinued. He's had no further cardiac causes today. Some of the sinus pauses possibly could be related to obstructive's apnea. Patient was evaluated by pulmonary service and they'll complete a sleep study in the outpatient setting. Also patient had evidence of elevated hemoglobin and hematocrit. He has had previous phlebotomy in the past. However this also may be related to obstructive sleep apnea. He is seen by hematology as well. They have ordered further blood work and follow-up with him in the office in one week. Patient's hemoglobin at discharge is down to 17.5 and hematocrit 54.1. Patient's symptoms have increased improved she's been cleared by consulting physicians for discharge.also note the patient was seen by ophthalmology due to some vision changes that have not results. He'll be following up with ophthalmology in the office. patient is medically stable for discharge please refer to chart for any further details Patient Condition at Discharge: Stable Plan - Discharge Summary New Discharge Prescriptions: Aspirin 81 mg PO DAILY #30 chew Atorvastatin [Lipitor] 80 mg PO DAILY #30 tab Clopidogrel [Plavix] 75 mg PO DAILY #30 tab Losartan-Hctz 50-12.5 mg [Hyzaar 50-12.5] 1 each PO HS #30 tab Discharge Medication List Aspirin 81 mg PO DAILY #30 chew 07/03/16 [Rx] Atorvastatin [Lipitor] 80 mg PO DAILY #30 tab 07/03/16 [Rx] Clopidogrel [Plavix] 75 mg PO DAILY #30 tab 07/03/16 [Rx] Losartan-Hctz 50-12.5 mg [Hyzaar 50-12.5] 1 each PO HS #30 tab 07/03/16 [Rx] Follow up Appointment(s)/Referral(s): Sandy Parks DO [Primary Care Provider] - 1 Week Rhett Rivera MD [STAFF PHYSICIAN] - 1 Week Henry Bird MD [STAFF PHYSICIAN] - 1 Week Purvi Winkler MD [STAFF PHYSICIAN] - 1 Week Uma Serrano MD [STAFF PHYSICIAN] - 1 Week Activity/Diet/Wound Care/Special Instructions: diet: cardiac Activity: as tolerated No chewing tobacco Discharge Disposition: HOME SELF-CARE
[2016-07-03 13:56] VITALS: BP 135/83; PULSE 65; TEMP 97.1
--- NOTE | 2016-07-03 15:00 | P.PN ---
Subjective Principal diagnosis: Non-STEMI This is a 51-year-old gentleman with history of hypertension, nicotine dependence in the form of chewing tobacco, who presented to the hospital with a non-ST elevation myocardial infarction. He was taken to the cardiac catheterization lab by Dr. Dima Serrano where he underwent angioplasty with stenting of the circumflex artery. Patient was seen and examined this morning, he's been up ambulating in the [place] most of the day without any symptoms. No further pauses noted on the monitor. From cardiology's perspective, he may be able to be discharged home today to follow-up with Dr. Dima Serrano in the office. We are continuing to hold his beta clinton because of the episode of pauses. Sleep evaluation will be performed as an outpatient. Objective - Vital Signs Vital signs: Vital Signs Temp 97.1 F L 07/03/16 12:00 Pulse 65 07/03/16 12:00 Resp 18 07/03/16 12:00 BP 135/83 07/03/16 12:00 Pulse Ox 94 L 07/03/16 12:00 Intake & Output 07/02/16 07/03/16 07/03/16 18:59 06:59 18:59 Intake Total 1080 960 460 Output Total 1000 Balance 1080 -40 460 Intake: Oral 1080 960 460 Output: Urine 1000 Other: # Voids 1 # Bowel Movements 0 - Exam PHYSICAL EXAMINATION: HEENT: Head is atraumatic, normocephalic. Pupils equal, round. Neck is supple. There is no elevated jugular venous pressure. HEART EXAMINATION: Heart S1, S2 normal. No murmur or gallop heard. CHEST EXAMINATION: Lungs are clear to auscultation and precussion. No chest wall tenderness is noted on palpation or with deep breathing. ABDOMEN: Soft, nontender. Bowel sounds are heard. No organomegaly noted. Right radial site clean and dry, good distal pulse. EXTREMITIES: 2+ peripheral pulses with no evidence of peripheral edema and no calf tenderness noted. NEUROLOGIC patient is awake, alert and oriented -3. . - Labs CBC & Chem 7: 07/02/16 06:12 07/02/16 06:12 Assessment and Plan Plan: Assessment and plan #1 non-ST elevation myocardial infarction status post angioplasty and stenting of the circumflex #2 hypertension #3 nicotine dependence in the form of chewing tobacco #3-4 second pauses, could be secondary to sleep apnea. #4 polycythemia Plan Cardiology's perspective, we'll continue the current medications the patient is on. He may be able to be discharged home from our perspective. A follow-up appointment will be made with Dr. Dima Serrano in the office post discharge. Patient will be discharged home on aspirin 81 mg daily, Lipitor 80 mg daily, Plavix 75 mg daily, Hyzaar 50/12.5 mg daily, and sublingual nitroglycerin as needed for chest pain. Patient is not going home on a beta clinton because of episode of pauses he will be reevaluated for this as an outpatient. He also will have a sleep evaluation done as an outpatient. DNP note has been reviewed, I agree with a documented findings and plan of care. Patient was seen and examined.
[2016-07-07 11:14] LABS: Mis test requested (Blood) JAK2 (V617F)Mutation
[2016-07-07 11:23] LABS: Mis test requested (Blood) Erythropoietin(EPO)
[2016-07-12 17:00] LABS: Mis test requested (Blood) JAK2 Exon 12 Mutatn
== END 2016-07-03 14:33 | disposition home or self-care (01) | DRG 247 ==
LOC: EC 11:11 → 6SEL 13:31
PROVIDERS: ADMIT Internal Medicine; ATTEND Internal Medicine
PROC: 027034Z Dilation of Coronary Artery, One Artery with Drug-eluting Intraluminal Device, Percutaneous Approach (ICD-10-PCS; principal; 2016-07-02)
PROC: 4A023N7 Measurement of Cardiac Sampling and Pressure, Left Heart, Percutaneous Approach (ICD-10-PCS; 2016-07-02)
PROC: B2111ZZ Fluoroscopy of Multiple Coronary Arteries using Low Osmolar Contrast (ICD-10-PCS; 2016-07-02)
DX: I21.4 Non-ST elevation (NSTEMI) myocardial infarction (principal); D75.1 Secondary polycythemia; D45 Polycythemia vera; E78.5 Hyperlipidemia, unspecified; G43.109 Migraine with aura, not intractable, without status migrainosus; I10 Essential (primary) hypertension; I25.10 Atherosclerotic heart disease of native coronary artery without angina pectoris; K21.9 Gastro-esophageal reflux disease without esophagitis; H53.9 Unspecified visual disturbance; G47.33 Obstructive sleep apnea (adult) (pediatric); F17.220 Nicotine dependence, chewing tobacco, uncomplicated; Z79.899 Other long term (current) drug therapy; Z88.6 Allergy status to analgesic agent; Z88.8 Allergy status to other drugs, medicaments and biological substances; Z82.49 Family history of ischemic heart disease and other diseases of the circulatory system
CPT/HCPCS: 36415; 71020; 80053; 80061; 81270; 81403; 82550; 82553; 82668; 82728; 83021; 83735; 83880; 84484; 85025; 85045; 85379; 85610; 85730; 93005; 93306; 93458; 96365; 96366; 96376; 99291

== ENCOUNTER 2022-10-22 14:50 | Emergency (ER) | payer BC, OTHER ==
[2022-10-22 14:58] VITALS: TEMP 98
[2022-10-22] MEDS ORDERED: ADENOSINE 3 MG/ML 2 ML VIAL IVP STA (15:32)
[2022-10-22 15:35] LABS: INR 1.1 (<1.2); Partial Thromboplastin Time 27.2 sec (22.0-30.0); Prothrombin Time 11.5 sec (9.0-12.0)
[2022-10-22 15:41] LABS: Basophils % (A) 0 %; Eosinophils # (A) 0.1 k/uL (0-0.7); Eosinophils % (A) 1 %; Lymphocytes # (A) 0.9 k/uL (1.0-4.8); Lymphocytes % (A) 12 %; MCH 30.2 pg (25.0-35.0); MCHC 33.7 g/dL (31.0-37.0); MCV 89.5 fL (80.0-100.0); Monocytes # (A) 0.5 k/uL (0-1.0); Monocytes % (A) 7 %; Neutrophils % (A) 79 %; Platelet Count 161 k/uL (150-450); RBC 6.46 m/uL (4.30-5.90); RDW 13.7 % (11.5-15.5); WBC 7.6 k/uL (3.8-10.6)
[2022-10-22 15:47] LABS: HGB 19.5 gm/dL (13.0-17.5)
[2022-10-22 15:48] LABS: HCT 57.8 % (39.0-53.0)
[2022-10-22 15:58] LABS: ALT 27 U/L (4-49); AST 35 U/L (17-59); African American GFR (CKD) 64 (>60 ml/min/1.73 sqM); Albumin 4.7 g/dL (3.5-5.0); Alkaline Phosphatase 62 U/L (38-126); Anion Gap 11 mmol/L; Blood Urea Nitrogen 20 mg/dL (9-20); Calcium 9.6 mg/dL (8.4-10.2); Carbon Dioxide 26 mmol/L (22-30); Chloride 101 mmol/L (98-107); Glucose 98 mg/dL (74-99); Magnesium 2.1 mg/dL (1.6-2.3); Non-African American GFR(CKD) 56 (>60 ml/min/1.73 sqM); Potassium 4.1 mmol/L (3.5-5.1); Sodium 138 mmol/L (137-145); Total Protein 7.8 g/dL (6.3-8.2)
[2022-10-22 16:40] VITALS: RESP 18
--- NOTE | 2022-10-22 16:41 | XR ---
EXAMINATION TYPE: XR chest 2V DATE OF EXAM: 10/22/2022 COMPARISON: none INDICATION: Chest pain tightness TECHNIQUE: Single frontal view of the chest is obtained. FINDINGS: The heart size is normal. The pulmonary vasculature is normal. The lungs are clear. IMPRESSION: 1. No acute pulmonary process.
--- NOTE | 2022-10-22 19:36 | ED ---
General Adult HPI - General Chief complaint: Chest Pain Stated complaint: Poss Heart Attack,History of Heart Attack Time Seen by Provider: 10/22/22 15:10 Source: patient Mode of arrival: wheelchair Limitations: no limitations - History of Present Illness Initial comments: This is a 57-year-old male with a past medical history including hypertension and previous cardiac stent presents emergency department for chest discomfort and jaw pain. The patient stated the symptoms began yesterday around noon and had been persistent. The patient stated that he had continued symptoms and had worsening sweating episodes therefore he came to the emergency department for evaluation. On arrival, the patient was resting in bed without any acute distress. The patient denied any active shortness of breath or chest pain. - Related Data Home Medications Medication Instructions Recorded Confirmed [id number] 2 tab PO ONCE PRN 10/22/22 10/22/22 [Excedrin] Cyruta Plus 6 tab PO DAILY 10/22/22 10/22/22 Losartan [Cozaar] 50 mg PO DAILY 10/22/22 10/22/22 hydroCHLOROthiazide [Hydrodiuril] 25 mg PO DAILY 10/22/22 10/22/22 Previous Rx's Medication Instructions Recorded Aspirin 81 mg PO DAILY #30 chew 07/03/16 Allergies Allergy/AdvReac Type Severity Reaction Status Date / Time Antihistamines - Alkylamine AdvReac Unknown Verified 10/22/22 15:33 ibuprofen [From Motrin] AdvReac Nausea Verified 10/22/22 15:33 Review of Systems ROS Statement: Those systems with pertinent positive or pertinent negative responses have been documented in the HPI. ROS Other: All systems not noted in ROS Statement are negative. Past Medical History Past Medical History: Hypertension, Myocardial Infarction (CO) Additional Past Medical History / Comment(s): kidney stones, polycythemia with previous phlebotomy History of Any Multi-Drug Resistant Organisms: None Reported Past Surgical History: Heart Catheterization, Heart Catheterization With Stent Additional Past Surgical History / Comment(s): paraTHYROID, FACIAL recon struction nose, eye socket d/t accident, PILONODIAL CYSTs x 5, lt SHOULDER reconstruction Past Anesthesia/Blood Transfusion Reactions: No Reported Reaction Past Psychological History: No Psychological Hx Reported Past Alcohol Use History: Occasional Past Drug Use History: None Reported - Past Family History Father History Unknown: Yes Additional Family Medical History / Comment(s): grandmother [place] General Exam Limitations: no limitations General appearance: alert, in no apparent distress, obese Head exam: Present: atraumatic, normocephalic, normal inspection Eye exam: Present: normal appearance, PERRL Pupils: Present: normal accommodation ENT exam: Present: normal exam, normal oropharynx, mucous membranes moist Neck exam: Present: normal inspection, full ROM Respiratory exam: Present: normal lung sounds bilaterally Cardiovascular Exam: Present: normal rhythm, tachycardia GI/Abdominal exam: Present: soft, normal bowel sounds Extremities exam: Present: normal inspection, full ROM Back exam: Present: normal inspection, full ROM Neurological exam: Present: alert, oriented X3, CN II-XII intact Psychiatric exam: Present: normal affect, normal mood Skin exam: Present: warm, dry Course Vital Signs 10/22/22 10/22/22 10/22/22 14:55 15:39 16:38 Temperature 98 F Pulse Rate 93 110 H 96 Respiratory 20 18 Rate Blood Pressure 107/76 129/89 O2 Sat by Pulse 95 96 Oximetry 10/22/22 19:43 Temperature Pulse Rate 84 Respiratory 18 Rate Blood Pressure 134/91 O2 Sat by Pulse 95 Oximetry EKG Findings - EKG Comments: EKG Findings:: In triage, an EKG was obtained and was interpreted by myself showing a rate of 193, QR scientologist of 138 and QTC of 332. This EKG likely was SVT. While in the emergency department, the patient had an IV placed and did have spontaneous resolution of his arrhythmia. A repeat EKG was obtained and was interpreted by myself showing a rate of 108, NV interval 183, history of 82 and QTC of 345. This EKG showed a sinus tachycardia with no ST segment elevation or depression noted. Medical Decision Making - Medical Decision Making Was pt. sent in by a medical professional or institution (, PA, COINING PRESS OPERATOR, urgent care, hospital, or care home...) When possible be specific @ -No Did you speak to anyone other than the patient for history (EMS, parent, family, police, friend...)? What history was obtained from this source @ -No Did you review nursing and triage notes (agree or disagree)? Why? @ -I reviewed and agree with nursing and triage notes Were old charts reviewed (outside hosp., previous admission, EMS record, old EKG, old radiological studies, urgent care reports/EKG's, care home records)? Report findings @ -No old charts were reviewed Differential Diagnosis (chest pain, altered mental status, abdominal pain women, abdominal pain men, vaginal bleeding, weakness, fever, dyspnea, syncope, headache, dizziness, GI bleed, back pain, seizure, CVA, palpatations, mental health)? @ -SVT, ACS, pneumonia EKG interpreted by me (3pts min.). @ -As above X-rays interpreted by me (1pt min.). @ -Chest x-ray was obtained and was interpreted by myself showing no acute pulmonary process. CT interpreted by me (1pt min.). @ -None done U/S interpreted by me (1pt. min.). @ -None done What testing was considered but not performed or refused? (CT, X-rays, U/S, labs)? Why? @ -None What meds were considered but not given or refused? Why? @ -None Did you discuss the management of the patient with other professionals (professionals i.e. , PA, COINING PRESS OPERATOR, lab, RT, psych nurse, social sciences chair, electromechanical equipment assembler, teacher, disability hearing officer, watch case polisher)? Give summary @ -No Was smoking cessation discussed for >3mins.? @ -No Was critical care preformed (if so, how long)? @ -Yes, see above Were there social determinants of health that impacted care today? How? (Homelessness, low income, unemployed, alcoholism, drug addiction, transportation, low edu. Level, literacy, decrease access to med. care, group home, rehab)? @ -No Was there de-escalation of care discussed even if they declined (Discuss DNR or withdrawal of care, Hospice)? DNR status @ -No What co-morbidities impacted this encounter? (DM, HTN, Smoking, COPD, CAD, Cancer, CVA, ARF, Chemo, Hep., AIDS, mental health diagnosis, sleep apnea, morbid obesity)? @ -Hypertension, previous stent, polycythemia Was patient admitted / discharged? Hospital course, mention meds given and rout e, prescriptions, significant lab abnormalities, going to OR and other pertinent info. @ -The patient was seen and evaluated in emergency department. On physical exam, the patient was resting in bed without any acute complaints. Vital signs admission showed a heart rate in the 190s. The patient was in SVT however denied any further symptoms at this time. Cardiac workup was obtained. The patient had 3 attempts at vagal maneuvers and was unsuccessful. The patient did however receive a peripheral IV that did spontaneous resolved the patient's arrhythmia. A repeat EKG confirmed this. All workup was negative. Due to the patient's symptoms in the setting of jaw pain as well as left sided chest pain and an episode of SVT as well as laboratory workup showing a hemoglobin of 19.8 consistent with the patient's history of polycythemia vera, did recommend the patient be observed to be seen by cardiology. The patient however didn't want to do this and instead wanted to follow-up with his flue blower as an outpatient. Due to the patient's multiple issues currently, I did state that the patient would need to leave AGAINST MEDICAL ADVICE and he did agree with this. The patient did understand all of the results and the instructions to follow back in department if he had worsening symptoms. The patient did leave AGAINST MEDICAL ADVICE. Undiagnosed new problem with uncertain prognosis? @ -No Drug Therapy requiring intensive monitoring for toxicity (Heparin, Nitro, Insulin, Cardizem)? @ -No Were any procedures done? @ -No Diagnosis/symptom? @ -Chest pain, episode of SVT, resolved, polycythemia Acute, or Chronic, or Acute on Chronic? @ -Acute Uncomplicated (without systemic symptoms) or Complicated (systemic symptoms)? @ -Complicated Side effects of treatment? @ -No Exacerbation, Progression, or Severe Exacerbation? @ -No Poses a threat to life or bodily function? How? (Chest pain, [place], CO, pneumonia, PE, COPD, DKA, ARF, appy, cholecystitis, CVA, Diverticulitis, Homicidal, Suicidal, threat to staff... and all critical care pts) @ -No - Lab Data Result diagrams: 10/22/22 15:05 10/22/22 15:05 Lab Results 10/22/22 10/22/22 10/22/22 Range/Units 15:05 15:05 15:05 WBC 7.6 (3.8-10.6) k/uL RBC 6.46 H (4.30-5.90) m/uL Hgb 19.5 H* (13.0-17.5) gm/dL Hct 57.8 H* (39.0-53.0) % MCV 89.5 (80.0-100.0) fL MCH 30.2 (25.0-35.0) pg MCHC 33.7 (31.0-37.0) g/dL RDW 13.7 (11.5-15.5) % Plt Count 161 (150-450) k/uL MPV 8.0 Neutrophils % 79 % Lymphocytes % 12 % Monocytes % 7 % Eosinophils % 1 % Basophils % 0 % Neutrophils # 6.0 (1.3-7.7) k/uL Lymphocytes # 0.9 L (1.0-4.8) k/uL Monocytes # 0.5 (0-1.0) k/uL Eosinophils # 0.1 (0-0.7) k/uL Basophils # 0.0 (0-0.2) k/uL PT 11.5 (9.0-12.0) sec INR 1.1 (<1.2) APTT 27.2 (22.0-30.0) sec Sodium 138 (137-145) mmol/L Potassium 4.1 (3.5-5.1) mmol/L Chloride 101 (98-107) mmol/L Carbon Dioxide 26 (22-30) mmol/L Anion Gap 11 mmol/L BUN 20 (9-20) mg/dL Creatinine 1.40 H (0.66-1.25) mg/dL Est GFR (CKD-EPI)AfAm 64 (>60 ml/min/1.73 sqM) Est GFR (CKD-EPI)NonAf 56 (>60 ml/min/1.73 sqM) Glucose 98 (74-99) mg/dL Calcium 9.6 (8.4-10.2) mg/dL Magnesium 2.1 (1.6-2.3) mg/dL Total Bilirubin 1.0 (0.2-1.3) mg/dL AST 35 (17-59) U/L ALT 27 (4-49) U/L Alkaline Phosphatase 62 (38-126) U/L Troponin I (0.000-0.034) ng/mL Total Protein 7.8 (6.3-8.2) g/dL Albumin 4.7 (3.5-5.0) g/dL 10/22/22 Range/Units 15:05 WBC (3.8-10.6) k/uL RBC (4.30-5.90) m/uL Hgb (13.0-17.5) gm/dL Hct (39.0-53.0) % MCV (80.0-100.0) fL MCH (25.0-35.0) pg MCHC (31.0-37.0) g/dL RDW (11.5-15.5) % Plt Count (150-450) k/uL MPV Neutrophils % % Lymphocytes % % Monocytes % % Eosinophils % % Basophils % % Neutrophils # (1.3-7.7) k/uL Lymphocytes # (1.0-4.8) k/uL Monocytes # (0-1.0) k/uL Eosinophils # (0-0.7) k/uL Basophils # (0-0.2) k/uL PT (9.0-12.0) sec INR (<1.2) APTT (22.0-30.0) sec Sodium (137-145) mmol/L Potassium (3.5-5.1) mmol/L Chloride (98-107) mmol/L Carbon Dioxide (22-30) mmol/L Anion Gap mmol/L BUN (9-20) mg/dL Creatinine (0.66-1.25) mg/dL Est GFR (CKD-EPI)AfAm (>60 ml/min/1.73 sqM) Est GFR (CKD-EPI)NonAf (>60 ml/min/1.73 sqM) Glucose (74-99) mg/dL Calcium (8.4-10.2) mg/dL Magnesium (1.6-2.3) mg/dL Total Bilirubin (0.2-1.3) mg/dL AST (17-59) U/L ALT (4-49) U/L Alkaline Phosphatase (38-126) U/L Troponin I <0.012 (0.000-0.034) ng/mL Total Protein (6.3-8.2) g/dL Albumin (3.5-5.0) g/dL Critical Care Time Critical Care Time: Yes Total Critical Care Time: 32 Disposition Clinical Impression: SVT (supraventricular tachycardia), Chest pain Disposition: LEFT AGAINST MEDICAL ADVICE Condition: Stable Instructions (If sedation given, give patient instructions): Supraventricular Tachycardia (ED), Chest Pain (ED) Is patient prescribed a controlled substance at d/c from ED?: No Referrals: Sandy Parks DO [Primary Care Provider] - 1-2 days Time of Disposition: 18:00
[2022-10-22 19:44] VITALS: BP 134/91; PULSE 84
== END 2022-10-22 19:44 | disposition left against medical advice (07) ==
LOC: EC 14:50
DX: I47.1 Supraventricular tachycardia (principal); R07.89 Other chest pain; I10 Essential (primary) hypertension; I25.2 Old myocardial infarction; Z79.82 Long term (current) use of aspirin; Z79.899 Other long term (current) drug therapy; Z88.6 Allergy status to analgesic agent; Z88.8 Allergy status to other drugs, medicaments and biological substances; Z53.29 Procedure and treatment not carried out because of patient's decision for other reasons
CPT/HCPCS: 36415; 71046; 80053; 83735; 84484; 85025; 85610; 85730; 93005; 99291

== ENCOUNTER 2023-06-11 20:24 | Emergency (ER) | payer BC ==
[2023-06-11] MEDS: SODIUM CHLORIDE 0.9% 1,000 ML IV ONE (21:45)
[2023-06-11] MEDS: ORPHENADRINE 30 MG/ML 2 ML VIAL IVP STA (21:45)
[2023-06-11 21:50] LABS: Basophils % (A) 0 %; Eosinophils # (A) 0.2 k/uL (0-0.7); Eosinophils % (A) 2 %; HCT 53.9 % (39.0-53.0); HGB 17.3 gm/dL (13.0-17.5); Lymphocytes # (A) 1.1 k/uL (1.0-4.8); Lymphocytes % (A) 16 %; MCH 29.7 pg (25.0-35.0); MCHC 32.1 g/dL (31.0-37.0); MCV 92.5 fL (80.0-100.0); Mean Platelet Volume 8.6; Monocytes # (A) 0.4 k/uL (0-1.0); Monocytes % (A) 5 %; Neutrophils # (A) 5.4 k/uL (1.3-7.7); Neutrophils % (A) 76 %; Platelet Count 171 k/uL (150-450); RBC 5.82 m/uL (4.30-5.90); WBC 7.1 k/uL (3.8-10.6)
[2023-06-11 22:03] LABS: ALT 24 U/L (4-49); AST 35 U/L (17-59); African American GFR (CKD) 82 (>60 ml/min/1.73 sqM); Albumin 4.2 g/dL (3.5-5.0); Alkaline Phosphatase 74 U/L (38-126); Anion Gap 9 mmol/L; Blood Urea Nitrogen 27 mg/dL (9-20); Calcium 8.9 mg/dL (8.4-10.2); Carbon Dioxide 22 mmol/L (22-30); Chloride 106 mmol/L (98-107); Creatine Kinase 90 U/L (55-170); Glucose 115 mg/dL (74-99); Non-African American GFR(CKD) 71 (>60 ml/min/1.73 sqM); Sodium 137 mmol/L (137-145); Total Bilirubin 0.8 mg/dL (0.2-1.3); Total Protein 7.1 g/dL (6.3-8.2)
--- NOTE | 2023-06-11 22:08 | ED ---
General Adult HPI - General Source: patient, EMS Mode of arrival: EMS <Jenny Roberson - Last Filed: 06/11/23 23:57> <Andree Camara - Last Filed: 06/12/23 02:26> - General Limitations: no limitations - History of Present Illness -: hour(s) Location: right, lower extremity Radiation: proximal, distal Severity scale (1-10): 10 Quality: sharp Consistency: constant Improves with: none Worsens with: none, immobilization Treatments Prior to Arrival: none <Jhonny Pritchard - Last Filed: 06/15/23 22:06> - General Chief complaint: Extremity Problem,Nontraumatic Stated complaint: Leg pain Time Seen by Provider: 06/11/23 20:36 - History of Present Illness Initial comments: 58-year-old male presents to the emergency department for evaluation of right thigh pain. He states that started today after he took his dog to the vet. He reports that he possibly injured his leg while wrestling with his last night. He states that his leg bent in a weird direction, he had pain at that time but that had resolved. He notes that today he noted severe pain to his right lateral thigh. He was unable to walk on it due to the pain. Because of this he was brought in by EMS. He was given 100mcg of Fentanyl on the ambulance. Patient reports that he is still in significant pain following this. He denies redness or swelling to the area, fever, chills. (Jenny Roberson) This is a 58-year-old male to ER for evaluation of severe right extremity pain difficulty moving right extremity difficulty in ambulation as pain worsened at home today. Patient was doing his normal day with normal activity and pain became to be severe presenting to the emergency department, pain is in the right leg right thigh (Jhonny Pritchard) - Related Data Home Medications Medication Instructions Recorded Confirmed [id number] [id number] 2 tab PO ONCE PRN 10/22/22 10/22/22 [Excedrin] Cyruta Plus 6 tab PO DAILY 10/22/22 10/22/22 Losartan [Cozaar] 50 mg PO DAILY 10/22/22 10/22/22 hydroCHLOROthiazide [Hydrodiuril] 25 mg PO DAILY 10/22/22 10/22/22 Previous Rx's Medication Instructions Recorded Aspirin 81 mg PO DAILY #30 chew 07/03/16 Allergies Allergy/AdvReac Type Severity Reaction Status Date / Time Antihistamines - Alkylamine AdvReac Unknown Verified 06/11/23 20:32 ibuprofen [From Motrin] AdvReac Nausea Verified 06/11/23 20:32 Review of Systems ROS Other: All systems not noted in ROS Statement are negative. <Jenny Roberson - Last Filed: 06/11/23 23:57> ROS Other: All systems not noted in ROS Statement are negative. <Andree Camara - Last Filed: 06/12/23 02:26> ROS Other: All systems not noted in ROS Statement are negative. <Jhonny Pritchard - Last Filed: 06/15/23 22:06> ROS Statement: Those systems with pertinent positive or pertinent negative responses have been documented in the HPI. Past Medical History Past Medical History: Atrial Fibrillation, Hypertension, Myocardial Infarction ([place]) Additional Past Medical History / Comment(s): kidney stones, polycythemia with previous phlebotomy History of Any Multi-Drug Resistant Organisms: None Reported Past Surgical History: Heart Catheterization, Heart Catheterization With Stent Additional Past Surgical History / Comment(s): paraTHYROID, FACIAL reconstruction nose, eye socket d/t accident, PILONODIAL CYSTs x 5, lt SHOULDER reconstruction Past Anesthesia/Blood Transfusion Reactions: No Reported Reaction Past Psychological History: No Psychological Hx Reported Past Alcohol Use History: Occasional Past Drug Use History: None Reported - Past Family History Father History Unknown: Yes Additional Family Medical History / Comment(s): grandmother [place] <Jenny Roberson - Last Filed: 06/11/23 23:57> General Exam Limitations: no limitations General appearance: alert, in distress (d/t pain) Head exam: Present: atraumatic, normocephalic, normal inspection Eye exam: Present: normal appearance, PERRL, EOMI. Absent: scleral icterus, conjunctival injection, periorbital swelling Respiratory exam: Present: normal lung sounds bilaterally. Absent: respiratory distress, wheezes, rales, rhonchi, stridor Cardiovascular Exam: Present: regular rate, normal rhythm, normal heart sounds. Absent: systolic murmur, diastolic murmur, rubs, gallop, clicks GI/Abdominal exam: Present: soft. Absent: tenderness Extremities exam: Present: normal inspection, full ROM, tenderness (right lateral thigh), normal capillary refill, other (DP and PT pulses 2+). Absent: pedal edema, joint swelling, calf tenderness Neurological exam: Present: alert, oriented X3 Psychiatric exam: Present: normal affect, normal mood Skin exam: Present: warm, dry, intact, normal color. Absent: rash <Jenny Roberson - Last Filed: 06/11/23 23:57> General appearance: alert, in no apparent distress Head exam: Present: atraumatic, normocephalic, normal inspection Eye exam: Present: normal appearance, PERRL, EOMI. Absent: scleral icterus, conjunctival injection, periorbital swelling ENT exam: Present: normal exam, mucous membranes moist Neck exam: Present: normal inspection. Absent: tenderness, meningismus, lymphadenopathy Respiratory exam: Present: normal lung sounds bilaterally. Absent: respiratory distress, wheezes, rales, rhonchi, stridor Cardiovascular Exam: Present: regular rate, normal rhythm, normal heart sounds. Absent: systolic murmur, diastolic murmur, rubs, gallop, clicks GI/Abdominal exam: Present: soft, normal bowel sounds. Absent: distended, tenderness, guarding, rebound, rigid Extremities exam: Present: normal inspection, full ROM, normal capillary refill. Absent: tenderness, pedal edema, joint swelling, calf tenderness Back exam: Present: normal inspection Neurological exam: Present: alert, oriented X3, CN II-XII intact Psychiatric exam: Present: normal affect, normal mood Skin exam: Present: warm, dry, intact, normal color. Absent: rash <Jhonny Pritchard - Last Filed: 06/15/23 22:06> Course <Jhonny Pritchard - Last Filed: 06/15/23 22:06> Vital Signs 06/11/23 06/11/23 06/11/23 20:28 21:47 23:53 Temperature 99.8 F H 98.4 F Pulse Rate 67 74 71 Respiratory 17 16 15 Rate Blood Pressure 183/98 156/96 176/84 O2 Sat by Pulse 95 95 98 Oximetry 06/12/23 06/12/23 00:21 04:26 Temperature Pulse Rate 65 80 Respiratory 17 18 Rate Blood Pressure 151/75 166/75 O2 Sat by Pulse 95 95 Oximetry - Reevaluation(s) Reevaluation #1: 06/12/23 03:19 Medical records reviewed (Jhonny Pritchard) Reevaluation #2: 06/12/23 03:19 Patient's pain is improved and patient is resting (Jhonny Pritchard) Medical Decision Making - Lab Data Result diagrams: 06/11/23 21:38 06/11/23 21:38 <Jenny Roberson - Last Filed: 06/11/23 23:57> - Lab Data Result diagrams: 06/11/23 21:38 06/11/23 21:38 <Andree Camaar - Last Filed: 06/12/23 02:26> - Lab Data Result diagrams: 06/11/23 21:38 06/12/23 04:42 - Radiology Data Radiology results: report reviewed (Ultrasound x-ray and CT of the right lower extremity thigh and pelvis is negative for acute disease), image reviewed <Jhonny Pritchard - Last Filed: 06/15/23 22:06> - Medical Decision Making Was pt. sent in by a medical professional or institution (, PA, PHYSIOLOGIST, urgent care, hospital, or half-way...) When possible be specific @ -[No] Did you speak to anyone other than the patient for history (EMS, parent, family, police, friend...)? What history was obtained from this source @ -[No] Did you review nursing and triage notes (agree or disagree)? Why? @ -[I reviewed and agree with nursing and triage notes] Were old charts reviewed (outside hosp., previous admission, EMS record, old EKG, old radiological studies, urgent care reports/EKG's, half-way records)? Report findings @ -[No old charts were reviewed] Differential Diagnosis (chest pain, altered mental status, abdominal pain women, abdominal pain men, vaginal bleeding, weakness, fever, dyspnea, syncope, head ache, dizziness, GI bleed, back pain, seizure, CVA, palpatations, mental health, musculoskeletal)? @ -[Differential Musculoskeletal Muscular strain, contusion, ligament sprain, fracture, arthritis, septic arthritis, bursitis, cellulitis, muscle spasm, nerve compression, DVT, arterial occlusion, herpes zoster, electrolyte abnormality, tumor.... This is not meant to be in all inclusive list] EKG interpreted by me (3pts min.). @ -[none] X-rays interpreted by me (1pt min.). @ -[XR femur pending at sign out] CT interpreted by me (1pt min.). @ -[None done] U/S interpreted by me (1pt. min.). @ -[right lower extremity ultrasound pending at sign out ] What testing was considered but not performed or refused? (CT, X-rays, U/S, labs)? Why? @ -[None] What meds were considered but not given or refused? Why? @ -[None] Did you discuss the management of the patient with other professionals (prof deleon i.e. , PA, PHYSIOLOGIST, lab, RT, psych nurse, clinical social work aide, workplace trainer and assessor, teacher, postal sorting officer, protective services case worker)? Give summary @ -[No] Was smoking cessation discussed for >3mins.? @ -[No] Was critical care preformed (if so, how long)? @ -[No] Were there social determinants of health that impacted care today? How? (Homelessness, low income, unemployed, alcoholism, drug addiction, transportation, low edu. Level, literacy, decrease access to med. care, fdc, rehab)? @ -[No] Was there de-escalation of care discussed even if they declined (Discuss DNR or withdrawal of care, Hospice)? DNR status @ -[No] What co-morbidities impacted this encounter? (DM, HTN, Smoking, COPD, CAD, Cancer, CVA, ARF, Chemo, Hep., AIDS, mental health diagnosis, sleep apnea, morbid obesity)? @ -[None] Was patient admitted / discharged? Hospital course, mention meds given and route, prescriptions, significant lab abnormalities, going to OR and other pertinent info. @ -[Patient presented to the emergency department for evaluation of right thigh pain starting today. Patient brought in by EMS as he was unable to ambulate due to the pain. Patient received 100 mcg of fentanyl on the ambulance. He was given a dose of Norflex in the ED. he reports that this improved his symptoms but continues to have pain with movement. Distal neurovascular status intact. Laboratory studies obtained., Normal WBC at 7.1, hemoglobin 17.3; CMP unremarkable, lactic acid 1.4, CK 90. X-ray of the right femur was obtained along with US of right lower extremity which are pending at time of sign out to Andree Camara PA-C] Undiagnosed new problem with uncertain prognosis? @ -[No] Drug Therapy requiring intensive monitoring for toxicity (Heparin, Nitro, Insulin, Cardizem)? @ -[No] Were any procedures done? @ -[No] Diagnosis/symptom? @ -[default] Acute, or Chronic, or Acute on Chronic? @ -[default] Uncomplicated (without systemic symptoms) or Complicated (systemic symptoms)? @ -[default] Side effects of treatment? @ -[No] Exacerbation, Progression, or Severe Exacerbation? @ -[No] Poses a threat to life or bodily function? How? (Chest pain, [place], [place], pneumonia, PE, COPD, DKA, ARF, appy, cholecystitis, CVA, Diverticulitis, Homicidal, Suicidal, threat to staff... and all critical care pts) @ -[No] (Jenny Roberson) Patient is signed out to me pending imaging reports. Patient is given Toradol. I obtained a brief history. In short this patient is having right-sided thigh pain. No radiation from the lower back. This is localized only to the lateral thigh. Feels like a burning sensation. Ultrasound is negative for DVT. X-ray shows no acute process. On reassessment the patient is able to ambulate and states that pain is somewhat alleviated with ambulation, he does have worsening pain with returning to seated and laying down position. Patient is ordered [address] w contrast abdomen and pelvis, lumbar spine, and right lower extremity ordered. Patient signed out to attending Dr. Pritchard for further management and disposition (Andree Camara) 58 male with nonspecific right lower extremity pain. Right leg pain right thigh pain. No significant pain or tenderness over greater trochanter bursitis. Patient has normal imaging here in the ER and pain is now controlled. After prolonged SD hospitalization patient is feeling improved can be discharged home (Jhonny Pritchard) - Lab Data Lab Results 06/11/23 06/11/23 06/11/23 Range/Units 21:38 21:38 21:38 WBC 7.1 (3.8-10.6) k/uL RBC 5.82 (4.30-5.90) m/uL Hgb 17.3 (13.0-17.5) gm/dL Hct 53.9 H (39.0-53.0) % MCV 92.5 (80.0-100.0) fL MCH 29.7 (25.0-35.0) pg MCHC 32.1 (31.0-37.0) g/dL RDW 14.0 (11.5-15.5) % Plt Count 171 (150-450) k/uL MPV 8.6 Neutrophils % 76 % Lymphocytes % 16 % Monocytes % 5 % Eosinophils % 2 % Basophils % 0 % Neutrophils # 5.4 (1.3-7.7) k/uL Lymphocytes # 1.1 (1.0-4.8) k/uL Monocytes # 0.4 (0-1.0) k/uL Eosinophils # 0.2 (0-0.7) k/uL Basophils # 0.0 (0-0.2) k/uL Sodium 137 (137-145) mmol/L Potassium 4.4 (3.5-5.1) mmol/L Chloride 106 (98-107) mmol/L Carbon Dioxide 22 (22-30) mmol/L Anion Gap 9 mmol/L BUN 27 H (9-20) mg/dL Creatinine 1.14 (0.66-1.25) mg/dL Est GFR (CKD-EPI)AfAm 82 (>60 ml/min/1.73 sqM) Est GFR (CKD-EPI)NonAf 71 (>60 ml/min/1.73 sqM) Glucose 115 H (74-99) mg/dL Plasma Lactic Acid Jignesh 1.4 (0.7-2.0) mmol/L Calcium 8.9 (8.4-10.2) mg/dL Total Bilirubin 0.8 (0.2-1.3) mg/dL AST 35 (17-59) U/L ALT 24 (4-49) U/L Alkaline Phosphatase 74 (38-126) U/L Creatine Kinase 90 (55-170) U/L Total Protein 7.1 (6.3-8.2) g/dL Albumin 4.2 (3.5-5.0) g/dL Serum Alcohol mg/dL 06/12/23 Range/Units 04:42 WBC (3.8-10.6) k/uL RBC (4.30-5.90) m/uL Hgb (13.0-17.5) gm/dL Hct (39.0-53.0) % MCV (80.0-100.0) fL MCH (25.0-35.0) pg MCHC (31.0-37.0) g/dL RDW (11.5-15.5) % Plt Count (150-450) k/uL MPV Neutrophils % % Lymphocytes % % Monocytes % % Eosinophils % % Basophils % % Neutrophils # (1.3-7.7) k/uL Lymphocytes # (1.0-4.8) k/uL Monocytes # (0-1.0) k/uL Eosinophils # (0-0.7) k/uL Basophils # (0-0.2) k/uL Sodium 136 L (137-145) mmol/L Potassium 4.5 (3.5-5.1) mmol/L Chloride 108 H (98-107) mmol/L Carbon Dioxide 22 (22-30) mmol/L Anion Gap 6 mmol/L BUN 24 H (9-20) mg/dL Creatinine 1.04 (0.66-1.25) mg/dL Est GFR (CKD-EPI)AfAm >90 (>60 ml/min/1.73 sqM) Est GFR (CKD-EPI)NonAf 79 (>60 ml/min/1.73 sqM) Glucose 110 H (74-99) mg/dL Plasma Lactic Acid Jignesh (0.7-2.0) mmol/L Calcium 8.4 (8.4-10.2) mg/dL Total Bilirubin 1.4 H (0.2-1.3) mg/dL AST 37 (17-59) U/L ALT 22 (4-49) U/L Alkaline Phosphatase 48 (38-126) U/L Creatine Kinase (55-170) U/L Total Protein 6.6 (6.3-8.2) g/dL Albumin 3.8 (3.5-5.0) g/dL Serum Alcohol <10 mg/dL Disposition <Jenny Roberson - Last Filed: 06/11/23 23:57> <Andree Camara - Last Filed: 06/12/23 02:26> Is patient prescribed a controlled substance at d/c from ED?: No Time of Disposition: 05:30 <Jhonny Pritchard - Last Filed: 06/15/23 22:06> Clinical Impression: Right leg pain, Right thigh pain, Right hip pain Disposition: HOME SELF-CARE Condition: Good Instructions (If sedation given, give patient instructions): Arthralgia (ED), Hip Pain (ED), Leg Pain (ED) Referrals: Sandy Parks DO [Primary Care Provider] - 1-2 days
[2023-06-11 22:14] VITALS: TEMP 98.4
[2023-06-11 22:14] LABS: Potassium 4.4 mmol/L (3.5-5.1)
[2023-06-12] MEDS: KETOROLAC 15 MG/ML 1 ML VIAL IVP STA (01:02)
--- NOTE | 2023-06-12 01:18 | US ---
EXAM: US Duplex Right Lower Extremity Veins CLINICAL HISTORY: ITS.REASON US Reason: pain TECHNIQUE: Real-time duplex ultrasound scan of the right lower extremity veins integrating B-mode two-dimensional vascular structure, Doppler spectral analysis, color flow Doppler imaging and compression. COMPARISON: No relevant prior studies available. FINDINGS: Deep veins: No DVT in the visualized common femoral, femoral, proximal deep femoral or popliteal veins. The veins demonstrate normal color flow, are normally compressible, with normal phasic flow and/or augmentation response. Superficial veins: No thrombus in the visualized great saphenous vein. Soft tissues: No popliteal cyst. IMPRESSION: No DVT.
--- NOTE | 2023-06-12 02:22 | XR ---
EXAM: XR Right Femur, 2 Views CLINICAL HISTORY: ITS.REASON XR Reason: pain TECHNIQUE: Frontal and lateral views of the right femur. COMPARISON: No relevant prior studies available. FINDINGS: Bones/joints: No acute fracture. No dislocation. Soft tissues: Unremarkable. IMPRESSION: No acute osseous abnormalities.
[2023-06-12] MEDS: HYDROmorphone 1 MG/ML 1 ML SYRINGE IVP STA (04:19)
[2023-06-12 04:49] VITALS: BP 166/75; PULSE 80; RESP 18
--- NOTE | 2023-06-12 05:10 | CT ---
EXAM: CT Angiography Abdomen and Pelvis With Runoff to the Lower Extremities Without and With Intravenous Contrast CLINICAL HISTORY: CT Reason: R leg/pelvis pain TECHNIQUE: Axial computed tomographic angiography images of the abdomen, pelvis and lower extremities without and with intravenous contrast. CTDI is 55. 3 mGy and DLP is 2653.4 mGy-cm. This CT exam was performed using one or more of the following dose reduction techniques: automated exposure control, adjustment of the mA and/or kV according to patient size, and/or use of iterative reconstruction technique. MIP reconstructed images were created and reviewed. COMPARISON: No relevant prior studies available. FINDINGS: VASCULATURE: Aorta: The abdominal aorta is slightly calcified but nondilated. There is no aneurysm or dissection. Celiac trunk and mesenteric arteries: No acute findings. No occlusion or significant stenosis. Renal arteries: No acute findings. No occlusion or significant stenosis. Right iliac arteries: No acute findings. No occlusion or significant stenosis. Right femoral/popliteal arteries: No acute findings. No occlusion or significant stenosis. Right calf/foot arteries: Suboptimal contrast opacification of the arterial structures in the calves bilaterally due to timing of the bolus. There appears to be three-vessel runoff bilaterally. Left iliac arteries: No acute findings. No occlusion or significant stenosis. Left femoral/popliteal arteries: No acute findings. No occlusion or significant stenosis. Left calf/foot arteries: See above. Lung bases: Unremarkable. No mass. No consolidation. ABDOMEN: Liver: Unremarkable. No mass. Gallbladder and bile ducts: Unremarkable. No calcified stones. No ductal dilation. Pancreas: Unremarkable. No ductal dilation. No mass. Spleen: Unremarkable. No splenomegaly. Adrenals: Unremarkable. No mass. Kidneys and ureters: Unremarkable. No obstructing stones. No hydronephrosis. No solid mass. Stomach and bowel: See below. PELVIS: Appendix: The appendix is normal. Bowel loops are nondilated. There is severe diverticulosis of the sigmoid colon without signs of acute diverticulitis. Bladder: Unremarkable. No stones. No mass. Reproductive: Unremarkable as visualized. ABDOMEN, PELVIS and LOWER EXTREMITIES: Intraperitoneal space: Unremarkable. No significant fluid collection. No free air. Bones/joints: No acute fracture. No dislocation. Soft tissues: Unremarkable. Lymph nodes: Unremarkable. No enlarged lymph nodes. IMPRESSION: 1. The appendix is normal. Bowel loops are nondilated. There is severe diverticulosis of the sigmoid colon without signs of acute diverticulitis. 2. Suboptimal contrast opacification of the arterial structures in the calves bilaterally due to timing of the bolus. There appears to be three- vessel runoff bilaterally. The aortoiliac system and femoral-popliteal system appear widely patent. No evidence of arterial insufficiency.
[2023-06-12 05:17] LABS: ALT 22 U/L (4-49); African American GFR (CKD) >90 (>60 ml/min/1.73 sqM); Alcohol <10 mg/dL; Anion Gap 6 mmol/L; Blood Urea Nitrogen 24 mg/dL (9-20); Calcium 8.4 mg/dL (8.4-10.2); Carbon Dioxide 22 mmol/L (22-30); Chloride 108 mmol/L (98-107); Glucose 110 mg/dL (74-99); Non-African American GFR(CKD) 79 (>60 ml/min/1.73 sqM); Sodium 136 mmol/L (137-145); Total Bilirubin 1.4 mg/dL (0.2-1.3)
[2023-06-12 05:25] LABS: Potassium 4.5 mmol/L (3.5-5.1); Total Protein 6.6 g/dL (6.3-8.2)
[2023-06-12 05:26] LABS: AST 37 U/L (17-59); Albumin 3.8 g/dL (3.5-5.0); Alkaline Phosphatase 48 U/L (38-126)
[2023-06-12] MEDS: ACET/COD 300 MG/30 MG STARTER PACK 6 TAB BTL PO STA (05:36)
[2023-06-12] MEDS: traMADol 50 MG STARTER PACK 3 TAB BTL PO STA (05:37)
== END 2023-06-12 05:47 | disposition home or self-care (01) ==
LOC: EC 20:24
DX: M79.651 Pain in right thigh (principal); M25.551 Pain in right hip; Z88.6 Allergy status to analgesic agent; Z88.8 Allergy status to other drugs, medicaments and biological substances
CPT/HCPCS: 36415 ×2; 80053 ×2; 82550; 83605; 85025; 80320; 73552; 93971; 75635; 99284; 96374; 96375 ×2; 96361; J2360; J1170; J1885; Q9967